=== PATIENT | male | born 1950 | race Caucasian/White ===

== ENCOUNTER → 2020-02-28 07:23 | Outpatient (CLI) | payer MEDICARE, OTHER, SELFPAY ==
--- NOTE | 2020-02-28 | DI.MRI.S_ITS ---
PROCEDURE: MR HEAD/BRAIN WO/W CON INDICATIONS: Disorientation, unspecified TECHNIQUE: Noncontrast axial T1 spin echo, axial T2 fast spin echo, sagittal and axial FLAIR, coronal T2 fast spin echo, axial gradient echo, axial diffusion and ADC through the brain. After the administration of contrast, axial and coronal T1 spin echo with fat saturation through the brain. COMPARISON: None. FINDINGS: Image quality: Excellent. CSF spaces: Basal cisterns are patent. No extra-axial fluid collections. Ventricles are normal in size and shape. Brain: No midline shift. No intracranial bleeds or masses. No abnormal intracranial enhancement. There is cerebral volume loss for age. There is periventricular white matter chronic small vessel ischemic change. The brainstem appears normal. Diffusion-weighted images demonstrate no acute ischemic insults. No chronic ischemic insults. There is a 7 millimeter in diameter lesion with rounded contours the demonstrates mixed T1 and T2 signal with susceptibility artifact in the left parietal lobe that is compatible with cavernoma.. Normal intravascular flow voids are present. Skull and face: Calvarial marrow is normal in signal. Orbits appear normal. Sinuses: Sinuses and mastoids appear clear. IMPRESSION: 1. No acute intracranial disease process. 2. No areas of acute or chronic infarction. 3. 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 4. No abnormal intracranial mass or mass effect. 5. No suspicious postcontrast enhancement. Dictated by: Terri Vides MD, PhD on 02/28/2020 at 11:54 Approved by: Terri Vides MD, PhD on 02/28/2020 at 11:58
== END ==
PROVIDERS: Family Provider Family Medicine; PCP Family Medicine; Referring Provider Family Medicine; Visit Provider Family Medicine
DX: D18.02 Hemangioma of intracranial structures (principal)
CPT/HCPCS: 70553

== ENCOUNTER → 2021-07-22 07:04 | Outpatient (CLI) | payer MEDICARE, OTHER, SELFPAY ==
--- NOTE | 2021-07-22 07:07 | DI.MRI.S_ITS ---
PROCEDURE: MR HEAD/BRAIN WO CON INDICATIONS: Disorientation, unspecified TECHNIQUE: Non-contrast axial T1 spin echo, axial T2 fast spin echo, sagittal and axial FLAIR, coronal T2 fast spin echo, axial gradient echo, axial diffusion and ADC through the brain. COMPARISON: None. FINDINGS: Image quality: Excellent. CSF spaces: Ventricles appear symmetric in size and shape. Basal cisterns are patent. No extra-axial fluid collections. Brain: No intracranial bleeds or mass effects. 6 millimeter lesion with mixed T2 signal and susceptibility artifact noted in the left parietal subcortical white matter which likely represents a small cavernous angioma. There is cerebral volume loss for age. Brainstem appears normal. Diffusion-weighted images show no acute ischemic insults. No chronic ischemic insults. Normal intravascular flow voids are present. Skull and face: Calvarial bone marrow is normal in signal. Orbits are normal. Sinuses: Mild mucosal thickening noted in the ethmoid air cells bilaterally, the left maxillary sinus, the bilateral sphenoid sinuses and the right frontal sinus. The mastoids are clear. IMPRESSION: 1. No acute intracranial disease process. 2. No areas of acute or chronic infarction. 3. No abnormal intracranial mass or mass effect. 4. Probable 6 millimeter left parietal lobe cavernous angioma. Dictated by: Terri Vides MD, PhD on 07/22/2021 at 11:16 Approved by: Terri Vides MD, PhD on 07/22/2021 at 11:19
== END ==
PROVIDERS: Family Provider Family Medicine; PCP Family Medicine; Referring Provider Family Medicine; Visit Provider Family Medicine
DX: R25.3 Fasciculation (principal); R41.0 Disorientation, unspecified
CPT/HCPCS: 70551

== ENCOUNTER 2025-05-05 09:28 | Inpatient (IN) | payer MEDICARE, OTHER, SELFPAY ==
[2025-05-05] VITALS (13 sets, daily range): BP systolic 129–181; BP diastolic 69–109; PULSE 74–91; RESP 16–32; TEMP 36–36.3; O2SAT 98–100; BMI 34.7
--- NOTE | 2025-05-05 09:36 | ED.WEAKNESS ---
HPI - Weakness General Chief complaint: Weakness Stated complaint: weakness History of Present Illness HPI Narrative: 75y M hx of parkinsons disease lives at [address] was getting up to have shower got weak and is unable to stand. Patient denies any headache,but has daily dizziness that is not new for him. He denies loss of consciousness, chest pain, shortness of breath, but did report having upper respiratory infection recently with cough that has since resolved. He denies any nausea, vomiting, diarrhea, back pain, urinary complaints, sore throat, chills, body aches, but did report subjective fever. Other than what is stated 14 point review of system is negative. Related Data Home Medications ?Medication ?Instructions ?Recorded ?Confirmed buspirone 15 mg tablet 15 mg PO BID 05/05/25 05/05/25 carbidopa 25 mg-levodopa 100 mg tab PO QID 05/05/25 tablet carbidopa ER 50 mg-levodopa 200 mg 1 tab PO 4XD 05/05/25 05/05/25 tablet,extended release entacapone 200 mg tablet 400 mg PO TID 05/05/25 05/05/25 escitalopram oxalate 10 mg tablet PO 05/05/25 hydroxyzine HCl 25 mg tablet 25 mg PO BID 05/05/25 05/05/25 Previous Rx's ?Medication ?Instructions ?Recorded Magic Mouthwash See Rx Instructions .Route 10/26/21 .COMPLEX #180 mL fluconazole 150 mg tablet 150 mg PO Q3D 2 doses #2 tabs 10/26/21 Allergies Allergy/AdvReac Type Severity Reaction Status Date / Time No Known Drug Allergies Allergy Verified 05/05/25 09:50 Review of Systems Review of Systems ROS Unobtainable: All systems reviewed & are unremarkable except as noted in HPI and below Patient History Social History Smoking Status: Never smoker Exam Narrative Exam Narrative: GENERAL: [75] year old patient appears stated age. Well-developed patient, in mild distress. HEAD: Atraumatic. Normocephalic. EYES: Pupils equal round and reactive. Extraocular motions intact. No scleral icterus. No injection or drainage. ENT: Nose without bleeding, purulent drainage. Throat without erythema, tonsillar hypertrophy or exudate. Airway patent. NECK: Trachea midline. Non tender CARDIOVASCULAR: Regular rate and rhythm without murmurs, gallops, or rubs. RESPIRATORY: Clear to auscultation. Breath sounds equal bilaterally. No wheezes, rales, or rhonchi. GASTROINTESTINAL: Abdomen soft, non-tender, nondistended. EXTREMITIES: No edema or joint tenderness. BACK: Nontender without deformity or crepitance. No flank tenderness. NEURO: AOx3. SKIN: No rash or erythema of visible areas Initial Vital Signs Initial Vital Signs: Vital Signs Temperature 97.4 F L 05/05/25 09:30 Pulse Rate 83 05/05/25 09:30 Respiratory Rate 24 05/05/25 09:30 Blood Pressure 129/69 05/05/25 09:30 Pulse Oximetry 98 05/05/25 09:30 Oxygen Delivery Method Room Air 05/05/25 09:30 Course Orders Ordered: ED Orders 05/05/25 09:29 Complete Blood Count AUTO DIFF Stat Comprehensive Metabolic Panel Stat Lactate (Lactic Acid) Stat Lipase Stat Magnesium Stat NT-proBNP (BNP-Adult 18+) Stat Troponin I Stat 05/05/25 09:36 XR chest 1V Stat EKG-12 Lead Stat 05/05/25 09:37 CT head/brain wo con Stat 05/05/25 09:39 Respiratory Panel (Film Array) Stat 05/05/25 10:24 Blood Culture Stat 05/05/25 11:12 Urinalysis and Microscopic Stat 05/05/25 11:35 Lactate (Lactic Acid) Stat Discontinued Medications Carbidopa/Levodopa (Carbidopa-Levodopa 25/100 Tablet) 1 each PO NOW ONE Stop: 05/05/25 11:08 Last Admin: 05/05/25 11:14 Dose: 1 each Documented By: ENDY Carbidopa/Levodopa (Carbidopa-Levodopa Er 50/200 Tablet) 1 each PO NOW ONE Stop: 05/05/25 11:08 Last Admin: 05/05/25 11:14 Dose: 1 each Documented By: ENDY Entacapone (Entacapone 200 Mg Tablet) 400 mg PO NOW ONE Stop: 05/05/25 11:09 Last Admin: 05/05/25 11:15 Dose: 400 mg Documented By: ENDY Lactated Ringer's (Lactated Ringers) 1,000 mls @ 1,000 mls/hr IV BOLUS ONE Stop: 05/05/25 10:36 Last Infusion: 05/05/25 10:52 Dose: Infused Documented By: Admin: 05/05/25 09:48 Dose: 1,000 mls/hr Documented By: TC Lactated Ringer's (Lactated Ringers) 500 mls @ 1,000 mls/hr IV BOLUS ONE Stop: 05/05/25 11:20 Lactated Ringer's (Lactated Ringers) 1,000 mls @ 1,000 mls/hr IV BOLUS ONE Stop: 05/05/25 11:50 Last Admin: 05/05/25 10:58 Dose: 1,000 mls/hr Documented By: TC Lactated Ringer's (Lactated Ringers) 500 mls @ 1,000 mls/hr IV BOLUS ONE Stop: 05/05/25 11:25 Last Admin: 05/05/25 10:58 Dose: Not Given Documented By: TC Vital Signs Vital signs: Vital Signs - 8 hr 05/05/25 09:30 05/05/25 09:53 05/05/25 10:00 Temperature 97.4 F L Pulse Rate 83 79 79 Respiratory Rate 24 28 H Blood Pressure 129/69 Pulse Oximetry 98 98 98 Oxygen Delivery Method Room Air MDM - Weakness Lab Data 05/05/25 09:29 05/05/25 09:29 Labs: Lab Results 05/05/25 05/05/25 Range/Units 09:29 09:39 WBC 6.7 (4.5-11.0) X10^3/uL RBC 4.46 L (4.5-5.9) X10^6/uL Hgb 14.2 (13.5-17.5) g/dL Hct 40.2 L (41-53) % MCV 90.2 (80-100) fL MCH 31.9 (26-34) PG MCHC 35.3 (30-36) % RDW 12.6 (11.6-14.8) % Plt Count 295 (150-400) X10^3/uL Neut % (Auto) 73.3 (50-75) % Lymph % (Auto) 20.5 L (25-40) % [place] % (Auto) 4.7 (3-14) % Eos % (Auto) 0.9 L (2-4) % Baso % (Auto) 0.6 (0-2) % Neut # (Auto) 4900 (1661-7961) /uL Lymph # (Auto) 1400 (3641-2392) /uL [place] # (Auto) 300 (0-900) /uL Eos # (Auto) 100 (0-450) /uL Baso # (Auto) 0 (0-100) /uL Sodium 137 (137-145) mmol/L Potassium 4.4 (3.4-5.1) mmol/L Chloride 107 (98-107) mmol/L Carbon Dioxide 21 L (22-32) mmol/L BUN 19 (9-20) mg/dL Creatinine 0.92 (0.66-1.25) mg/dL Estimated GFR > 60 (>60) mL/min BUN/Creatinine Ratio 20.7 (6-22) Glucose 229 H (70-99) mg/dL Lactate 4.4 H* (0.7-2.1) mmol/L Calcium 9.0 (8.4-10.2) mg/dL Magnesium 2.3 (1.6-2.3) mg/dL Total Bilirubin 0.7 (0.2-1.3) mg/dL AST 29 (17-59) IU/L ALT 12 (<50) IU/L Alkaline Phosphatase 46 (38-126) U/L Troponin I < 0.012 (0.01-0.034) ng/mL NT-Pro-B Natriuret Pep 313 (<450) pg/mL Total Protein 7.1 (6.3-8.2) g/dL Albumin 4.2 (3.5-5.0) g/dL Globulin 2.9 (1.7-4.1) g/dL Albumin/Globulin Ratio 1.4 (1.0-2.8) Lipase 76 (23-300) U/L Chlamy pneumoniae PCR Not detected (Not Detect) Adenovirus (PCR) Not detected (Not Detect) B. pertussis DNA (PCR) Not detected (Not Detect) B.parapertussis DNA PCR Not detected (Not Detecte) Coronavirus OC43 (PCR) Not detected (Not Detect) Coronavirus HKU1 (PCR) Not detected (Not Detect) Coronavirus 229E (PCR) Not detected (Not Detect) SARS-CoV-2 (PCR) Not detected (Not Detecte) Coronavirus NL63 (PCR) Not detected (Not Detect) Human Metapneumovir PCR Not detected (Not Detect) Influenza Type A (PCR) Not detected (Not Detect) Influenza Type B (PCR) Not detected (Not Detect) M. pneumoniae (PCR) Not detected (Not Detect) Parainfluenza 1 (PCR) Not detected (Not Detect) Parainfluenza 2 (PCR) Not detected (Not Detect) Parainfluenza 3 (PCR) Not detected (Not Detect) Parainfluenza 4 (PCR) Not detected (Not Detect) RSV (PCR) Not detected (Not Detect) Entero/Rhino (PCR) Not detected (Not Detect) Imaging Data Chest x-ray: Radiologist Impression: [address] [address] XRay Report Signed Patient: Julio Lisa MR#: [id number] : 1950 Acct:[id number] Age/Sex: 75 / M Date of Service: 05/05/25 Loc: ED Accession Number: [id number] Procedure: XR chest 1V Ordering Provider: Sam Gasca D.O. PROCEDURE: XR CHEST 1V INDICATIONS: weakness TECHNIQUE: One view of the chest was acquired. COMPARISON: [facility], , CHEST 2 VIEW, 07/05/2017, 10:11. FINDINGS: Surgical changes and devices: None. Lungs and pleura: An incomplete inspiratory result is noted, causing a crowded appearance to the lung markings. No focal infiltrates are seen. No pneumothorax or significant pleural effusions are seen. Mediastinum: Mediastinal contours appear normal. Heart size is normal. Bones and chest wall: No suspicious bony lesions. Age-appropriate bony degenerative changes are seen. Overlying soft tissues appear unremarkable. IMPRESSION: Low lung volumes, without an acute abnormality seen by plain film. CT scan - head: Radiologist Impression: [address] [place] [id number] Scan Report Signed Patient: Julio Lisa MR#: [id number] : 1950 Acct:[id number] Age/Sex: 75 / M Date of Service: 05/05/25 Loc: ED Accession Number: [id number] Procedure: CT head/brain wo con Ordering Provider: Sam Gasca D.O. PROCEDURE: CT HEAD/BRAIN WO CON INDICATIONS: weakness dizzy TECHNIQUE: Noncontrast 4.5 mm thick angled axial sections acquired from the foramen magnum to the vertex, with coronal and sagittal reformats. For radiation dose reduction, the following was used: automated exposure control, adjustment of mA and/or kV according to patient size. COMPARISON: None. FINDINGS: Image quality: Diagnostic. CSF spaces: Basal cisterns are patent. No extra-axial fluid collections. The ventricles are symmetric in size and shape. Brain: No intracranial bleeds or mass effect. Stable appearance of a 6 mm left parietal centrum semiovale cavernoma. No adjacent cerebral edema. There is cerebral volume loss, with resultant ventricular and sulcal prominence. There are periventricular and deep white matter chronic small vessel ischemic changes. There is intracranial internal carotid artery atherosclerosis. Skull and face: Calvarium and visualized facial bones appear intact, without suspicious lesions. Sinuses: Visualized sinuses and mastoids are clear. IMPRESSION: No acute intracranial pathology. Dictated by: Gregg Lundberg M.D. on 05/05/2025 at 10:01 Approved by: Gregg Lundberg M.D. on 05/05/2025 at 10:04 [facility] Narrative Medical decision making narrative: All lab work, vital signs, nurse triage note, medication list, previous ER visits, and all imaging studies reviewed. Chest x-ray showed no acute process and head CT showed no acute process. Patient received 2 L of lactated ringer 1 L bolus. WBC 6.7 1114.2 platelets 295 electrolytes were normal. Lactic acid 4.4 and on repeat came down to 2.4. Differential diagnosis sepsis COVID flu RSV pneumonia UTI. Case discussed with Dr. Kimball who has graciously accepted the patient for inpatient admission Discharge Plan Departure Patient Disposition: Admitted as Observation Clinical Impression: Weak Admit Date/Time: 05/05/25 12:41 Admit Provider: Sam Kimball
[2025-05-05] MEDS: LACTATED RINGERS 1,000 ML 1000 ML IV ×2 (09:48→10:58)
[2025-05-05 09:55] LABS: Add Manual Diff / Slide Review NO; Hematocrit 40.2 % (41-53); Hemoglobin 14.2 g/dL (13.5-17.5); Lymphocytes Absolute Auto 1400 /uL (1100-4500); Mean Corpuscular HGB Conc 35.3 % (30-36); Mean Corpuscular Hemoglobin 31.9 PG (26-34); Mean Corpuscular Volume 90.2 fL (80-100); Platelet Count 295 X10^3/uL (150-400)
[2025-05-05 09:59] LABS: Alanine Aminotransferase 12 IU/L (<50); Albumin 4.2 g/dL (3.5-5.0); Albumin Globulin Ratio 1.4 (1.0-2.8); Alkaline Phosphatase 46 U/L (38-126); Blood Urea Nitrogen 19 mg/dL (9-20); Calcium 9.0 mg/dL (8.4-10.2); Carbon Dioxide 21 mmol/L (22-32); Chloride 107 mmol/L (98-107); Estimated Glomerular Filt Rate > 60 mL/min (>60); Globulin 2.9 g/dL (1.7-4.1); Glucose 229 mg/dL (70-99); HEMOLYSIS 17 (0-50); Lipase 76 U/L (23-300); Magnesium 2.3 mg/dL (1.6-2.3); Potassium 4.4 mmol/L (3.4-5.1); Sodium 137 mmol/L (137-145); Total Protein 7.1 g/dL (6.3-8.2)
[2025-05-05 10:08] LABS: Lactate (Lactic Acid) 4.4 mmol/L (0.7-2.1)
[2025-05-05 10:11] LABS: NT-proBNP (BNP-Adult 18+) 313 pg/mL (<450); Troponin I < 0.012 ng/mL (0.01-0.034)
[2025-05-05 10:54] LABS: Coronavirus NL 63 Not Detected (Not Detect); SARS- CoV-2 Not Detected (Not Detecte)
[2025-05-05] MEDS: CARBIDOPA-LEVODOPA ER 50/200 TABLET 1 EACH PO ×3 (11:14→20:36)
[2025-05-05] MEDS: CARBIDOPA-LEVODOPA 25/100 TABLET 1 EACH PO (11:14)
[2025-05-05] MEDS: ENTACAPONE 200 MG TABLET 400 MG PO ×2 (11:15→20:36)
[2025-05-05 11:25] LABS: Reflexed Lactate in 2 Hours Y
[2025-05-05 12:16] LABS: Appearance Urine UA CLEAR; Bilirubin Urine UA NEGATIVE (NEGATIVE); Color Urine UA YELLOW; Glucose Urine UA NEGATIVE (Negative); Ketones Urine UA NEGATIVE (NEGATIVE); Leukocyte Esterase Urine UA NEGATIVE (NEGATIVE); Nitrite Urine UA NEGATIVE (Negative); Occult Blood Urine UA NEGATIVE (Negative); Protein Urine UA NEGATIVE (Negative); Specific Gravity Urine UA 1.010 (1.000-1.035); Urobilinogen Urine UA 0.2 E.U./dL (0.2); pH Urine UA 7.5 (4.5-8.0)
[2025-05-05 12:31] LABS: Lactate 2HR (Lactic Acid Rflx) 2.4 mmol/L (0.7-2.1)
[2025-05-05 12:59] LABS: Troponin I < 0.012 ng/mL (0.01-0.034)
--- NOTE | 2025-05-05 13:03 | DI.RAD.S_ITS ---
PROCEDURE: XR KUB INDICATIONS: abd distension TECHNIQUE: One view of the abdomen acquired. COMPARISON: None. FINDINGS: Surgical changes and devices: None. Bowel: Multiple if filled, nondilated, stacked loops of small bowel throughout the abdomen in a nonspecific pattern. Soft tissues: No suspicious abdominal calcifications. Visualized solid organ contours appear normal in size. Bones: No suspicious bony lesions. IMPRESSION: Nonspecific air-filled mildly prominent, nondilated loops of bowel within the central abdomen. Recommend correlation with CT abdomen pelvis with IV contrast. Dictated by: Gregg Lundberg M.D. on 05/05/2025 at 14:06 Approved by: Gregg Lundberg M.D. on 05/05/2025 at 14:07
--- NOTE | 2025-05-05 13:32 | PM.HP.IH.1 ---
History of Present Illness History of Present Illness Date Patient Seen: 05/05/25 Time Patient Seen: 13:32 Chief complaint: weakness Narrative: 75-year-old male, normally sees Dr. Gutiérrez for primary care, resides at [facility] presented with weakness. He said he was unable to stand and shower. Did recently have some sort of upper respiratory infection that seems to have cleared, including cough which he says is now gone Denies any GI symptoms. No muscle aches. No chest pain or palpitations. ER evaluation unremarkable including normal white blood cell count normal chemistries normal chest x-ray and head CT. Urinalysis was also normal. He had a negative respiratory panel for typical respiratory viruses In the ER however he did have an elevated lactate level which improved with some IV fluids and time. In addition patient upon bladder scan was found to have over a 1000 cc in his bladder. Per patient and family patient been struggling to empty his bladder for quite some time. Is complaining of some abdominal/suprapubic discomfort likely from the bladder. Plain film KUB done in ER unremarkable by my interpretation He is admitted for observation Medical problems include Parkinson's disease with orthostatic hypotension on medications as listed. Some degree of anxiety and depression. Patient's spouse reports that she believes the buspirone that he takes his causing increased anxiety rather than helping. Patient on nothing for his prostate or bladder. By report has some sort of ventral hernia or maybe diastasis recti PFSH Medical History BPH NOS w ur obs/LUTS Peripheral neuropathy Ventral hernia Orthostatic hypotension Generalized anxiety disorder Depression Parkinsons disease Surgical History Status post repair of ventral hernia Social History Smoking Status: Never smoker Meds Home Medications and Allergies Home Medications ?Medication ?Instructions ?Recorded ?Confirmed ?Type Magic Mouthwash See Rx Instructions .Route 10/26/21 Rx .COMPLEX #180 mL fluconazole 150 mg tablet 150 mg PO Q3D 2 doses #2 tabs 10/26/21 05/05/25 Rx buspirone 15 mg tablet 15 mg PO BID 05/05/25 05/05/25 History carbidopa 25 mg-levodopa 100 mg tab PO QID 05/05/25 History tablet carbidopa ER 50 mg-levodopa 200 mg 1 tab PO 4XD 05/05/25 05/05/25 History tablet,extended release entacapone 200 mg tablet 400 mg PO TID 05/05/25 05/05/25 History escitalopram oxalate 10 mg tablet 10 mg PO BID 05/05/25 05/05/25 History fludrocortisone 0.1 mg tablet 0.2 mg PO QAM 05/05/25 05/05/25 History hydroxyzine HCl 25 mg tablet 25 mg PO BID 05/05/25 05/05/25 History midodrine 2.5 mg tablet 2.5 mg PO DAILY 05/05/25 05/05/25 History Allergies Allergy/AdvReac Type Severity Reaction Status Date / Time No Known Drug Allergies Allergy Verified 05/05/25 09:50 Review of Systems Review of Systems ROS: Yes All systems reviewed with the patient and are negative except as otherwise documented Exam Vital Signs (past 8 hours): - 05/05/25 09:30 05/05/25 09:53 05/05/25 10:00 Temperature 97.4 F L Pulse Rate 83 79 79 Respiratory Rate 24 28 H Blood Pressure 129/69 Pulse Oximetry 98 98 98 Oxygen Delivery Method Room Air 05/05/25 10:11 05/05/25 10:11 05/05/25 10:30 Temperature Pulse Rate 77 75 Respiratory Rate 28 H 23 Blood Pressure 145/77 H Pulse Oximetry 99 99 Oxygen Delivery Method 05/05/25 10:30 05/05/25 11:00 05/05/25 11:00 Temperature Pulse Rate 79 Respiratory Rate 25 H Blood Pressure 156/93 H 176/109 H Pulse Oximetry 98 Oxygen Delivery Method 05/05/25 11:30 05/05/25 11:30 05/05/25 12:00 Temperature Pulse Rate 87 91 H Respiratory Rate 27 H 32 H Blood Pressure 181/84 H Pulse Oximetry 99 99 Oxygen Delivery Method 05/05/25 12:30 05/05/25 12:31 05/05/25 12:31 Temperature Pulse Rate 91 H 85 Respiratory Rate 26 H 22 Blood Pressure 149/83 H Pulse Oximetry 100 99 Oxygen Delivery Method 05/05/25 13:00 05/05/25 13:00 Temperature Pulse Rate 75 Respiratory Rate 21 Blood Pressure 148/81 H Pulse Oximetry 99 Oxygen Delivery Method Oxygen Delivery Method Room Air Narrative Exam Narrative: Elderly male in no obvious distress lying in hospital bed HEENT-unremarkable Lungs-clear anteriorly posteriorly no wheezes no crackles with good breath sounds Heart-regular rate and rhythm no murmur somewhat distant heart tones Abdomen-positive bowel tones soft nontender maybe some generalized discomfort in the low abdomen no palpable masses Extremities-no cyanosis clubbing or edema Neuro-alert and oriented x3 moves all 4 extremities Objective Labs 05/05/25 09:29 05/05/25 09:29 Labs: Laboratory Results - last 24 hr 05/05/25 05/05/25 05/05/25 09:29 09:39 11:12 WBC 6.7 RBC 4.46 L Hgb 14.2 Hct 40.2 L MCV 90.2 MCH 31.9 MCHC 35.3 RDW 12.6 Plt Count 295 Neut % (Auto) 73.3 Lymph % (Auto) 20.5 L [place] % (Auto) 4.7 Eos % (Auto) 0.9 L Baso % (Auto) 0.6 Neut # (Auto) 4900 Lymph # (Auto) 1400 [place] # (Auto) 300 Eos # (Auto) 100 Baso # (Auto) 0 Sodium 137 Potassium 4.4 Chloride 107 Carbon Dioxide 21 L BUN 19 Creatinine 0.92 Estimated GFR > 60 BUN/Creatinine Ratio 20.7 Glucose 229 H Lactate 4.4 H* Calcium 9.0 Magnesium 2.3 Total Bilirubin 0.7 AST 29 ALT 12 Alkaline Phosphatase 46 Troponin I < 0.012 NT-Pro-B Natriuret Pep 313 Total Protein 7.1 Albumin 4.2 Globulin 2.9 Albumin/Globulin Ratio 1.4 Lipase 76 Urine Color Yellow Urine Appearance Clear Urine pH 7.5 Ur Specific [place] 1.010 Urine Protein Negative Urine Glucose (UA) Negative Urine Ketones Negative Urine Occult Blood Negative Urine Nitrate Negative Urine Bilirubin Negative Urine Urobilinogen 0.2 Ur Leukocyte Esterase Negative Urine RBC None seen Urine WBC None seen Ur Squamous Epith Cells None seen Urine Bacteria None seen Granular Casts 0-1/lpf Urine Mucus 1+ H Vol Urine Centrifuged 10ml (spun) Chlamy pneumoniae PCR Not detected Adenovirus (PCR) Not detected B. pertussis DNA (PCR) Not detected B.parapertussis DNA PCR Not detected Coronavirus OC43 (PCR) Not detected Coronavirus HKU1 (PCR) Not detected Coronavirus 229E (PCR) Not detected SARS-CoV-2 (PCR) Not detected Coronavirus NL63 (PCR) Not detected Human Metapneumovir PCR Not detected Influenza Type A (PCR) Not detected Influenza Type B (PCR) Not detected M. pneumoniae (PCR) Not detected Parainfluenza 1 (PCR) Not detected Parainfluenza 2 (PCR) Not detected Parainfluenza 3 (PCR) Not detected Parainfluenza 4 (PCR) Not detected RSV (PCR) Not detected Entero/Rhino (PCR) Not detected 05/05/25 11:46 WBC RBC Hgb Hct MCV MCH MCHC RDW Plt Count Neut % (Auto) Lymph % (Auto) [place] % (Auto) Eos % (Auto) Baso % (Auto) Neut # (Auto) Lymph # (Auto) [place] # (Auto) Eos # (Auto) Baso # (Auto) Sodium Potassium Chloride Carbon Dioxide BUN Creatinine Estimated GFR BUN/Creatinine Ratio Glucose Lactate 2.4 H Calcium Magnesium Total Bilirubin AST ALT Alkaline Phosphatase Troponin I < 0.012 NT-Pro-B Natriuret Pep Total Protein Albumin Globulin Albumin/Globulin Ratio Lipase Urine Color Urine Appearance Urine pH Ur Specific [place] Urine Protein Urine Glucose (UA) Urine Ketones Urine Occult Blood Urine Nitrate Urine Bilirubin Urine Urobilinogen Ur Leukocyte Esterase Urine RBC Urine WBC Ur Squamous Epith Cells Urine Bacteria Granular Casts Urine Mucus Vol Urine Centrifuged Chlamy pneumoniae PCR Adenovirus (PCR) B. pertussis DNA (PCR) B.parapertussis DNA PCR Coronavirus OC43 (PCR) Coronavirus HKU1 (PCR) Coronavirus 229E (PCR) SARS-CoV-2 (PCR) Coronavirus NL63 (PCR) Human Metapneumovir PCR Influenza Type A (PCR) Influenza Type B (PCR) M. pneumoniae (PCR) Parainfluenza 1 (PCR) Parainfluenza 2 (PCR) Parainfluenza 3 (PCR) Parainfluenza 4 (PCR) RSV (PCR) Entero/Rhino (PCR) Assessment & Plan Assessment & Plan narrative: 1. Weakness-patient with elevated lactate would suggest an infectious etiology however none has been found given his initial workup. We will continue with some IV fluids for now. No indication for antibiotic therapy at this point. Perhaps he is still recovering from his recent respiratory infection. All serologies for viral respiratory illness have been negative. No evidence of a UTI or pneumonia either objectively or subjectively. Will continue to monitor and await blood culture results as well. Recheck CBC and chemistries tomorrow morning 2. Parkinson's disease-continue patient's usual carbidopa levodopa and encaptone. Will have him seen by Physical therapy as well both for his weakness and his Parkinson's disease 3. Urinary retention secondary to BPH-well initiate tamsulosin therapy but given the volume that is seems to be present in his bladder based on bladder scan I think he would benefit from an indwelling catheter to allow decompression of bladder for more extended time and perhaps then regained some function. Does not appear to be a direct correlation with his overall weakness but perhaps it is a contributing factor 4. Depression/anxiety-continue patient's escitalopram and hydroxyzine. I am going to hold the buspirone given the report that it might be making his anxiety actually worse. 5. VTE prophylaxis-Lovenox appropriate and has been ordered 6. Code status-patient and family are in agreement he would not want to be resuscitated in the event of a sudden cardiac or respiratory arrest and this order has been placed 7. Hyperglycemia-patient with no known history of diabetes. A bit hyperglycemic to start with. Will plan to check an A1c in the morning and depending on his clinical course may benefit from some fingerstick glucose which I am choosing not to order at this time. We will see what his glucoses with the morning labs as well as the A1c. Time-Based Coding :: [TOTAL MINUTES] spent with patient and on the chart (including review of chart, obtaining history, exam, reviewing outside data, placing orders, documenting exam and treatment plan, and counseling patient) on [DATE]. [employer] Document charge(s): Yes Charge Codes Initial inpatient/observation care: [id number]
[2025-05-05] MEDS: LIDOCAINE 2% (GLYDO) 6 ML GEL TOP (14:31)
[2025-05-05] MEDS: SODIUM CHLORIDE 0.9% 1,000 ML 80 ML IV (15:43)
[2025-05-05] MEDS: CARBIDOPA-LEVODOPA 25/100 TABLET 2 EACH PO ×2 (15:44→20:36)
--- NOTE | 2025-05-05 15:47 | PT-IP ANOTE ---
Attempted to see pt, agitated with confusion when PT entered the room. RN states pt has dementia per and is worse in PM. Additionally pt is just receiving medication for Parkinson's, will perform evaluation tomorrow AM.
[2025-05-05] MEDS: TAMSULOSIN 0.4 MG CAPSULE PO (20:37)
[2025-05-05] MEDS: ACETAMINOPHEN 325 MG TABLET 650 MG PO (20:40)
[2025-05-06] MEDS: CARBIDOPA-LEVODOPA ER 50/200 TABLET 1 EACH PO ×4 (04:56→21:25)
[2025-05-06] MEDS: CARBIDOPA-LEVODOPA 25/100 TABLET 2 EACH PO ×3 (04:56→21:24)
[2025-05-06] MEDS: ENTACAPONE 200 MG TABLET 400 MG PO ×3 (04:56→21:25)
[2025-05-06] MEDS: SODIUM CHLORIDE 0.9% 1,000 ML 80 ML IV (05:53)
[2025-05-06 05:57] LABS: Add Manual Diff / Slide Review NO; Hematocrit 38.6 % (41-53); Hemoglobin 13.4 g/dL (13.5-17.5); Lymphocytes Absolute Auto 1800 /uL (1100-4500); Mean Corpuscular HGB Conc 34.7 % (30-36); Mean Corpuscular Hemoglobin 31.3 PG (26-34); Mean Corpuscular Volume 90.0 fL (80-100); Platelet Count 246 X10^3/uL (150-400)
[2025-05-06 06:13] LABS: Alanine Aminotransferase 10 IU/L (<50); Albumin 3.8 g/dL (3.5-5.0); Albumin Globulin Ratio 1.3 (1.0-2.8); Alkaline Phosphatase 43 U/L (38-126); Blood Urea Nitrogen 13 mg/dL (9-20); Calcium 8.7 mg/dL (8.4-10.2); Carbon Dioxide 25 mmol/L (22-32); Chloride 110 mmol/L (98-107); Estimated Glomerular Filt Rate > 60 mL/min (>60); Globulin 2.9 g/dL (1.7-4.1); Glucose 100 mg/dL (70-99); HEMOLYSIS < 15 (0-50); Potassium 4.0 mmol/L (3.4-5.1); Sodium 141 mmol/L (137-145); Total Protein 6.7 g/dL (6.3-8.2)
[2025-05-06 06:14] LABS: Hemoglobin A1C% w Est Avg Glu 6.0 % (4.0-6.0)
[2025-05-06 08:00] VITALS: BP 127/76; PULSE 74; RESP 20; TEMP 36.2; O2SAT 96
--- NOTE | 2025-05-06 08:10 | PM.PN.1 ---
Subjective Subjective Date Patient Seen: 05/06/25 Time Patient Seen: 13:35 Interval history: 75-year-old patient under primary care of Dr. Cameron admitted by Dr. Kimball yesterday. Patient with a history of Parkinson's and autonomic dysfunction with hypotension who presented with sudden onset of lower extremity weakness and inability to use lower extremities at all. Workup in the ER was negative and patient was admitted to the hospital for further evaluation. Initial lactate elevated normal after IV fluids and patient found to have urinary retention with a L of fluid obtained from his bladder and indwelling Cody catheter placed. Blood cultures thus far negative no elevated white blood cell count on patient is afebrile without any signs or symptoms of infection. Patient continues to have difficulty with mobility in his not at his baseline. PT has worked with him and feels that skilled care facility is recommended. Lengthy discussion with patient and his and daughter and son-in-law. feels that his anxiety is gradually worsening in his certainly has not been helped with the BuSpar and she feels that he has either possible anxiety attack after that or worsened Parkinson's symptoms. They see Neurology at [facility]. Recently the plan was to start him on a different medication for his Parkinson's but apparently this was not available at the pharmacy so they are waiting for that. He was diagnosed with Parkinson's in 2022 but symptoms predated it Patient did have an MRI in 2019 and 2021 which showed a cavernous hemangioma 7 mm on the 1st 1 6 mm on the 2nd but no other abnormalities Patient has had abdominal pain in the right lower quadrant that has been intermittent and progressive Patient is tolerating food and ate his whole lunch. He was drinking fluids. Catheters in place and working No change in past medical history medications allergies or health related behavior 12 point review of systems is negative for any headaches or chest pain or shortness a breath Negative for any fever rashes Negative for falls other than recent presenting complaint Patient lives in assisted care with his Exam Vital Signs (past 8 hours): Oxygen Delivery Method Room Air Oxygen Flow Rate 0 Narrative Exam Narrative: Patient is alert and cooperative sitting in the chair. History is obtained mostly from and daughter and son-in-law Afebrile vital signs are stable Neck: Supple without adenopathy Chest clear to auscultation without wheezes rhonchi or crackles Cor: Regular rate and rhythm without a murmur Abdomen: Positive bowel sounds, soft, nontender, nondistended, no obvious hepatosplenomegaly. Well-healed incision at the umbilicus from previous hernia repair Extremities no edema pulses intact Neurologic exam patient has difficulty really participating is he has trouble getting words out. Patient has normal strength grossly upper extremities and in the left lower extremity but patient is unable to dorsiflex on the right. Objective Labs 05/06/25 04:50 05/06/25 04:50 Labs: Laboratory Results - last 24 hr 05/05/25 05/05/25 05/05/25 09:29 09:39 11:12 WBC 6.7 RBC 4.46 L Hgb 14.2 Hct 40.2 L MCV 90.2 MCH 31.9 MCHC 35.3 RDW 12.6 Plt Count 295 Neut % (Auto) 73.3 Lymph % (Auto) 20.5 L [place] % (Auto) 4.7 Eos % (Auto) 0.9 L Baso % (Auto) 0.6 Neut # (Auto) 4900 Lymph # (Auto) 1400 [place] # (Auto) 300 Eos # (Auto) 100 Baso # (Auto) 0 Sodium 137 Potassium 4.4 Chloride 107 Carbon Dioxide 21 L BUN 19 Creatinine 0.92 Estimated GFR > 60 BUN/Creatinine Ratio 20.7 Glucose 229 H Hemoglobin A1c Lactate 4.4 H* Calcium 9.0 Magnesium 2.3 Total Bilirubin 0.7 AST 29 ALT 12 Alkaline Phosphatase 46 Troponin I < 0.012 NT-Pro-B Natriuret Pep 313 Total Protein 7.1 Albumin 4.2 Globulin 2.9 Albumin/Globulin Ratio 1.4 Lipase 76 Urine Color Yellow Urine Appearance Clear Urine pH 7.5 Ur Specific [place] 1.010 Urine Protein Negative Urine Glucose (UA) Negative Urine Ketones Negative Urine Occult Blood Negative Urine Nitrate Negative Urine Bilirubin Negative Urine Urobilinogen 0.2 Ur Leukocyte Esterase Negative Urine RBC None seen Urine WBC None seen Ur Squamous Epith Cells None seen Urine Bacteria None seen Granular Casts 0-1/lpf Urine Mucus 1+ H Vol Urine Centrifuged 10ml (spun) Chlamy pneumoniae PCR Not detected Adenovirus (PCR) Not detected B. pertussis DNA (PCR) Not detected B.parapertussis DNA PCR Not detected Coronavirus OC43 (PCR) Not detected Coronavirus HKU1 (PCR) Not detected Coronavirus 229E (PCR) Not detected SARS-CoV-2 (PCR) Not detected Coronavirus NL63 (PCR) Not detected Human Metapneumovir PCR Not detected Influenza Type A (PCR) Not detected Influenza Type B (PCR) Not detected M. pneumoniae (PCR) Not detected Parainfluenza 1 (PCR) Not detected Parainfluenza 2 (PCR) Not detected Parainfluenza 3 (PCR) Not detected Parainfluenza 4 (PCR) Not detected RSV (PCR) Not detected Entero/Rhino (PCR) Not detected 05/05/25 05/06/25 11:46 04:50 WBC 7.1 RBC 4.29 L Hgb 13.4 L Hct 38.6 L MCV 90.0 MCH 31.3 MCHC 34.7 RDW 12.7 Plt Count 246 Neut % (Auto) 63.2 Lymph % (Auto) 26.1 [place] % (Auto) 8.8 Eos % (Auto) 1.1 L Baso % (Auto) 0.8 Neut # (Auto) 4500 Lymph # (Auto) 1800 [place] # (Auto) 600 Eos # (Auto) 100 Baso # (Auto) 100 Sodium 141 Potassium 4.0 Chloride 110 H Carbon Dioxide 25 BUN 13 Creatinine 0.76 Estimated GFR > 60 BUN/Creatinine Ratio 17.1 Glucose 100 H D Hemoglobin A1c 6.0 Lactate 2.4 H Calcium 8.7 Magnesium Total Bilirubin 0.9 AST 24 ALT 10 Alkaline Phosphatase 43 Troponin I < 0.012 NT-Pro-B Natriuret Pep Total Protein 6.7 Albumin 3.8 Globulin 2.9 Albumin/Globulin Ratio 1.3 Lipase Urine Color Urine Appearance Urine pH Ur Specific [place] Urine Protein Urine Glucose (UA) Urine Ketones Urine Occult Blood Urine Nitrate Urine Bilirubin Urine Urobilinogen Ur Leukocyte Esterase Urine RBC Urine WBC Ur Squamous Epith Cells Urine Bacteria Granular Casts Urine Mucus Vol Urine Centrifuged Chlamy pneumoniae PCR Adenovirus (PCR) B. pertussis DNA (PCR) B.parapertussis DNA PCR Coronavirus OC43 (PCR) Coronavirus HKU1 (PCR) Coronavirus 229E (PCR) SARS-CoV-2 (PCR) Coronavirus NL63 (PCR) Human Metapneumovir PCR Influenza Type A (PCR) Influenza Type B (PCR) M. pneumoniae (PCR) Parainfluenza 1 (PCR) Parainfluenza 2 (PCR) Parainfluenza 3 (PCR) Parainfluenza 4 (PCR) RSV (PCR) Entero/Rhino (PCR) [facility] Medical History BPH NOS w ur obs/LUTS Peripheral neuropathy Ventral hernia Orthostatic hypotension Generalized anxiety disorder Depression Parkinsons disease Surgical History Status post repair of ventral hernia Social History household members: spouse Smoking Status: Never smoker alcohol intake: never Assessment & Plan Assessment & Plan narrative: 1. Weakness- suspect parkinson's, deconditioning, dehydration. No evidence of infection. Viral panels negative, AF, normal wbc and normal lactate after fluid hydration. Will await blood cultures. Abx not indicated at this time 2. Parkinson's disease-continue patient's usual carbidopa levodopa and encaptone. Will have him seen by Physical therapy as well both for his weakness and his Parkinson's disease 3. Urinary retention secondary to BPH-well initiate tamsulosin therapy but given the volume that is seems to be present in his bladder based on bladder scan I think he would benefit from an indwelling catheter to allow decompression of bladder for more extended time and perhaps then regained some function. Does not appear to be a direct correlation with his overall weakness but perhaps it is a contributing factor. Will continue with cody catheter. Will cautiously give flomax due to orthostasis associated with parkinsons. We will stop IV fluids and reassess tomorrow 4. Depression/anxiety-continue patient's escitalopram and hydroxyzine. I am going to hold the buspirone given the report that it might be making his anxiety actually worse. Could consider Seroquel although I worry this may worsen his Parkinson's symptoms and would want to clear this with Neurology 1st 5. VTE prophylaxis-Lovenox appropriate and has been ordered 6. Code status-patient and family are in agreement he would not want to be resuscitated in the event of a sudden cardiac or respiratory arrest and this order has been placed 7. Hyperglycemia-patient with no known history of diabetes. A bit hyperglycemic to start with. Will plan to check an A1c in the morning and depending on his clinical course may benefit from some fingerstick glucose which I am choosing not to order at this time. We will see what his glucoses with the morning labs as well as the A1c. 8. Anxiety. Will continue on lexapro and wean off buspar as per oupt 9. Neurologic changes: Could be related to Parkinson's and autonomic dysfunction with hypotension and dehydration however we will do a MRI MRA stroke protocol to rule out stroke or other etiologies 10. Abdominal pain with abnormal findings on x-ray. We will do CT scan of abdomen and pelvis with contrast 11. Cognitive changes Plan: Will need outpatient neuropsych eval. Will do MRI MRA stroke protocol to rule out coexisting abnormality 60 minutes was spent with patient reviewing his clinic chart and is hospital chart and talking with physicians meeting with the patient in his family and discussing with nursing and formulating a plan and documentation Time-Based Coding :: Time-Based Coding :: [TOTAL MINUTES] spent with patient and on the chart (including review of chart, obtaining history, exam, reviewing outside data, placing orders, documenting exam and treatment plan, and counseling patient) on [DATE].
[2025-05-06] MEDS: ENOXAPARIN 40 MG/0.4 ML SYRINGE SUBCUT (08:14)
[2025-05-06] MEDS: ESCITALOPRAM 10 MG TABLET PO ×2 (08:14→21:26)
[2025-05-06] MEDS: TAMSULOSIN 0.4 MG CAPSULE PO ×2 (08:14→21:25)
--- NOTE | 2025-05-06 08:35 | PT.IIE ---
Surgical History (Last Reviewed 05/05/25 @ 14:11 by Sam Kimball MD) Status post repair of ventral hernia Medical History (Last Reviewed 05/05/25 @ 14:11 by Sam Kimball MD) BPH NOS w ur obs/LUTS Depression Generalized anxiety disorder Orthostatic hypotension Parkinsons disease Peripheral neuropathy Ventral hernia Physical Therapy Inpatient Evaluation/Re-Eval M1 PT IP Prior Functional Status Start: 05/06/25 10:33 Freq: Status: Active Protocol: Document 05/06/25 10:34 NW (Rec: 05/06/25 10:48 NW [id number]) Medical Review Prior Functional Status Mobility and Gait Ousmane with u-step walker to and from the [facility]. Activities of Daily Requires assistance with bathing and dressing. Living and IADL's Social History Household Members spouse Living Arrangements House Home Environment High Toilet,Walk in Shower Home Equipment Four Wheel Walker,Grab Bars Near Toilet,Grab Bars In Shower Employment Status Retired Additional Social u-step walker History Comment M2 PT-IP Current Condition Start: 05/06/25 10:33 Freq: Status: Active Protocol: Document 05/06/25 10:34 NW (Rec: 05/06/25 10:48 NW [id number]) Physical Therapy Current Condition Current Condition Evaluation Date 05/06/25 Treatment Diagnosis Weakness, Parkinson's Onset Date 05/05/25 M3 PT-IP Subjective Start: 05/06/25 10:33 Freq: Status: Active Protocol: Document 05/06/25 10:34 NW (Rec: 05/06/25 10:48 NW [id number]) Subjective Physical Therapy Visit Type Type Initial Evaluation Visit Start Time 08:35 Visit Stop Time 09:15 Number of STAFF RN Visits 0 Physical Therapy Visit Comments Patient Comments Pt is found resting supine in bed and is agreeable to PT evaluation. Patient Goals To return to prior living arrangement. M4 PT-IP Mobility and Gait Start: 05/06/25 10:33 Freq: Status: Active Protocol: Document 05/06/25 10:34 NW (Rec: 05/06/25 10:48 NW [id number]) PT-Bed Mobility Assessment Rolling Type of Rolling Roll to Left Level of Assist Contact Guard Assistance Supine to Sit Supine to Sit Minimal Assistance,Head of Bed Elevated,Bedrails Scooting Scooting to Edge of Minimal Assistance Bed PT-Transfer Assessment Sit to and From Stand Sit to and from Minimal Assistance,1 Person Assistance,Use of Upper Stand Extremities Equipment Transfer Assistive Gait Belt,Front Wheeled Walker Device Transfers Transfer Destination Chair Transfer Technique Stand Step Pivot Transfer Ability Level of Assist Contact Guard Assistance,1 Person Assistance,Use of Upper Extremities Comments Mobility Comments Pt requires Lisseth with STS due to poor power production, once standing is able to maintain balance and perform transfer with CGA with good AD management. Gait Assessment Gait Gait Assistance Contact Guard Assist Required: Distance (Feet) 5 Assistive Devices Assistive Device Gait Belt,Front Wheeled Walker Gait Deviations General Gait Pattern Decreased Stride Length,Decreased Feet Clearance,Flexed Trunk,Narrow Based Gait Factors Limiting Gait Function Factors Limiting Abnormal Tonal Influences,Decreased Activity Tolerance, Gait Function Decreased Strength,Poor Balance Comments Gait Comments Pt is inconsistent with heel to toe progression with occasional shuffling for short distance ambulation. Pt noted fatigue after short distances ambulation. Good AD management. PT-Balance Assessment Sitting Balance and Reactions Static Sitting Normal Balance Ability Dynamic Sitting Good Balance Ability Standing Balance and Reactions Static Standing Fair Balance Ability Dynamic Standing Poor Balance Ability Device Used FWW Functional Assessments Other Functional Tests Not able to perform Performed M5 PT-IP Objective Assessments Start: 05/06/25 10:33 Freq: Status: Active Protocol: Document 05/06/25 10:34 NW (Rec: 05/06/25 10:48 NW [id number]) Orientation Orientation/Cognition Level of Alertness Alert Orientation Name,Month,Place,Situation Safety Awareness Decreased Safety Awareness Comments Takes increased time with responses and becomes emotional with certain questions regarding mobility. Gross Range of Motion Upper Extremity ROM Assessment Within Functional Limits Lower Extremity ROM Assessment Within Functional Limits Strength Upper Extremity Strength Assessment Within Functional Limits Lower Extremity Strength Assessment Within Functional Limits Comments Strength Comments Isolated strength within functional limits. Coordination Assessment Gross Coordination Gross Coordination Impaired Assessment Finger to Nose Test Moderate Impairment Pronation/Supination Moderate Impairment Test Heel on Sotomayor Test Moderate Impairment Sensation Assessment Sensation Gross Sensation Right LE Impaired,Left LE Impaired Light Touch Impaired Sensation Pins & Almo Description Comments Sensation Comments Peripheral neuropathy Muscle Tone Muscle Tone WNL No Comments Muscle Tone Comments 1+/4 MAD bilateral LE M6 PT-IP Treatment Start: 05/06/25 10:33 Freq: Status: Active Protocol: Document 05/06/25 10:34 NW (Rec: 05/06/25 10:48 NW [id number]) Physical Therapy Treatment Education Education Provided Safety Other Treatments Other Treatment Importance of time out of bed with staff assistance. Performed M7 PT-IP Assessment and Plan Start: 05/06/25 10:33 Freq: Status: Active Protocol: Document 05/06/25 10:34 NW (Rec: 05/06/25 10:48 NW [id number]) PT Summary Assessment and Plan Potential Rehabilitation Fair Potential Status of Condition Evolving at Evaluation Summary Impairments Strength,Balance,Coordination,Sensation,Tone,Cognition, Bed Mobility,Transfers,Gait,Activity Tolerance Progress Towards Progressing Toward Goals Goals Assessment Summary Julio is a 75 yr old male admitted for generalized weakness and debility from baseline. Pt at baseline utilizes a u-step walker and is able to ambulate from apartment to dinning zuniga at [facility] and requires assistance for bathing and dressing at [facility]. Today pt has WFL isolated strength testing, but requires Lisseth for bed mobility, transfers, and short distance gait of 5 ft with FWW. Pt is able to maintain balance with bilateral UE support of FWW, but with fatigue has retropulsion and is modA to lower to bed side chair. Recommending SNF upon discharge as pt is not at baseline and would need to increase assistance at [facility] to return. Goals Bed Mobility Goal Independent Transfer Goal Independent Gait Goal Independent Gait Distance 30 Days to Meet Goals 7 Frequency of Treatment Frequency Of Once a Day Treatment Treatment Plan Physical Therapy Bed Mobility Training,Transfer Training,Gait Training, Treatment Plan Therapeutic Exercise,Balance Retraining,Discharge Planning,Neuromuscular Re-ed,Coordination Retraining Other Progress gait distance Recommendations and Next Treatment Focus Precautions Other Precautions Parkinson's med timing, falls risk Recommendations To Nursing Amount of Assist 1 Person Assist Needed Discharge Recommendations PT Discharge SNF Rehab Recommendations Transportation Needs Wheelchair/Cabulance at Discharge - PT assist 1
[2025-05-06] MEDS: CARBIDOPA-LEVODOPA 25/100 TABLET 1 EACH PO (10:57)
[2025-05-06 11:04] VITALS: BP 167/97; PULSE 79; RESP 20; TEMP 36.2; O2SAT 100
--- NOTE | 2025-05-06 13:33 | DI.CT.S_ITS ---
PROCEDURE: CT ABDOMEN PELVIS W CON INDICATIONS: abdominal pain TECHNIQUE: After the administration of intravenous contrast, axial sections acquired from the lung bases to the pubic symphysis. Coronal and sagittal reformats were performed. For radiation dose reduction, the following was used: automated exposure control, adjustment of mA and/or kV according to patient size. COMPARISON: [facility], CR, XR CHEST 1V, 05/05/2025, 9:41. FINDINGS: Image quality: Diagnostic. Lower Chest: Left lung base pulmonary nodule measuring 0.4 cm, (5/31). Bibasilar atelectasis. No pleural effusion. Left infrahilar calcified node. Tiny hiatal hernia. ABDOMEN: Liver: -Hypodense focus in the left liver. Most likely a small cyst. -Enhancing focus in the left liver, (07/13). Gallbladder: No radiopaque gallstones or wall thickening. Biliary ducts: No biliary dilation. Pancreas: No ductal dilation. No peripancreatic fluid collection. Spleen: Size is within normal limits. Adrenal Glands: No adrenal nodules. Kidneys and Ureters: No hydronephrosis. No solid mass. No complex renal cystic lesion which requires follow up. Stomach and Bowel: Normal colonic caliber, without significant wall thickening. Diverticulosis. Normal appendix. Peritoneum: No abnormal intraperitoneal fluid. No free air. Ventral Wall: No significant ventral hernia. Abdominal Nodes: No retroperitoneal or mesenteric adenopathy by size criteria. Vessels: Aorta and inferior vena cava are normal in size. Portal vein is patent. PELVIS: Pelvic Organs: Prostatomegaly. Bladder: Decompressed with Duran catheter. Bladder wall appears thickened. There is stranding surrounding the urinary bladder. Pelvic Nodes: No enlarged lymph nodes. Miscellaneous: Left and possible right fat containing inguinal hernias. Vasectomy clips. Bones: No aggressive osseous abnormality. IMPRESSION: 1. Bladder is decompressed with Duran catheter. Bladder wall appears thickened with surrounding fat stranding. This could represent cystitis. -Recommend correlation with urinalysis if not yet performed. 2. Small enhancing focus in the left liver. This could represent a perfusion abnormality. Small hemangioma or other neoplasm are also in the differential diagnosis. Low suspicion. -If clinically indicated this could be further evaluated with multiphase liver CT or MRI. 3. Prostatomegaly. No enlarged lymph nodes. Dictated by: Sumanth Gomez M.D. on 05/06/2025 at 15:40 Approved by: Sumanth Gomez M.D. on 05/06/2025 at 15:51
--- NOTE | 2025-05-06 13:34 | DI.MRI.S_ITS ---
PROCEDURE: MR STROKE Pre- and post-contrast brain MRI, non-contrast brain MR angiogram, pre- and postcontrast neck MR angiogram INDICATIONS: parkinsons with neurologic changes TECHNIQUE: Brain: Noncontrast axial T1 spin echo, axial T2 fast spin echo, sagittal and axial FLAIR, coronal T2 fast spin echo, axial gradient echo, axial diffusion and ADC through the brain. After the administration of contrast, axial 3D VIBE of the cranial vasculature and brain. Brain MRA: Non-contrast 3-D time of flight MR angiogram, with multiple ibriulm-lwsrpcdef-bhxcazmvvg (MIP) reformats performed. Neck MRA: Axial and sagittal TruFISP through the neck. Coronal dynamic MR angiogram during administration of contrast in the arterial and venous phases, with 3- dimenstional xitgbul-gresbfokc-abtlzqzycr (MIP) reformats constructed from subtraction images. COMPARISON: [facility], CT, CT HEAD/BRAIN WO CON, 05/05/2025, 9:37. FINDINGS: Image quality: Excellent. BRAIN: CSF spaces: Ventricles are normal in size and shape. Basal cisterns are patent. No extra-axial fluid collections. Brain: No intracranial bleeds or mass effects. Beltran-white matter interface is normal. Diffusion weighted images show no acute infarct. Brainstem appears normal. Normal intravascular flow voids are present. Age-related volume loss and very mild, age-appropriate small-vessel ischemic change. There are 2 focal areas of hemosiderin deposition present, in the left posterior frontal parietal deep white matter as well as in the left anterior frontal periventricular deep white matter. Consider cavernous hemangiomas. No abnormal intracranial enhancement. Skull and face: Calvarial marrow signal is normal. Orbits appear normal. Sinuses: Sinuses and mastoids are clear. BRAIN MR ANGIOGRAM: Anterior circulation: Intracranial internal carotid arteries are normal in size and enhancement. The flow within the paired anterior cerebral arteries is normal and symmetric. The flow within the middle cerebral arteries is normal and symmetric. The anterior communicating artery is seen. No stenoses, occlusions, or aneurysms. Posterior circulation: The visualized portions of the vertebral arteries demonstrate normal caliber, and join to form a normal appearing basilar artery. The flow within the posterior cerebral arteries is normal and symmetric. No stenoses, occlusions, or aneurysms. NECK MR ANGIOGRAM: Carotids: Great vessels demonstrate a conventional anatomy as they arise from the aortic arch. The origins of the common carotid arteries appear patent. The calibers and courses of both common carotid arteries are normal. The bifurcation regions appear normal bilaterally. The internal carotid arteries demonstrate normal course and caliber. Posterior circulation: The origins of the vertebral arteries appear patent. More superior portions of both vertebral arteries demonstrate normal course and caliber, and join to form a normal appearing basilar artery. Miscellaneous: Subclavian arteries appear patent. Pre-contrast images through the neck show no soft tissue abnormalities. IMPRESSION: BRAIN MRI: Normal appearing brain parenchyma for patient age. Very mild small vessel ischemic change. No acute intracranial process. BRAIN MR ANGIOGRAM: Widely patent vessels. NECK MR ANGIOGRAM: Widely patent vessels. Dictated by: Anthony Maloney M.D. on 05/06/2025 at 15:10 Approved by: Anthony Maloney M.D. on 05/06/2025 at 15:16
[2025-05-06 16:00] VITALS: BP 163/94; PULSE 86; RESP 20; TEMP 36.6; O2SAT 100
[2025-05-07] VITALS (9 sets, daily range): BP systolic 92–147; BP diastolic 45–88; PULSE 78–95; RESP 18–21; TEMP 36.1–36.6; O2SAT 95–99
--- NOTE | 2025-05-07 01:15 | PC.NURSE ---
Pt noted with small amount of rectal incontence, diaper changed, cody catheter remain intact, tolerated change well.
[2025-05-07 06:04] LABS: Add Manual Diff / Slide Review NO; Hematocrit 36.9 % (41-53); Hemoglobin 12.9 g/dL (13.5-17.5); Lymphocytes Absolute Auto 1600 /uL (1100-4500); Mean Corpuscular HGB Conc 34.9 % (30-36); Mean Corpuscular Hemoglobin 31.5 PG (26-34); Mean Corpuscular Volume 90.2 fL (80-100); Platelet Count 240 X10^3/uL (150-400)
[2025-05-07] MEDS: CARBIDOPA-LEVODOPA 25/100 TABLET 2 EACH PO ×3 (06:05→20:13)
[2025-05-07] MEDS: ENTACAPONE 200 MG TABLET 400 MG PO ×3 (06:05→20:14)
[2025-05-07] MEDS: CARBIDOPA-LEVODOPA ER 50/200 TABLET 1 EACH PO ×4 (06:05→20:13)
[2025-05-07 06:28] LABS: Blood Urea Nitrogen 13 mg/dL (9-20); Calcium 8.8 mg/dL (8.4-10.2); Carbon Dioxide 21 mmol/L (22-32); Chloride 112 mmol/L (98-107); Estimated Glomerular Filt Rate > 60 mL/min (>60); Glucose 104 mg/dL (70-99); HEMOLYSIS < 15 (0-50); Potassium 4.1 mmol/L (3.4-5.1); Sodium 139 mmol/L (137-145)
--- NOTE | 2025-05-07 08:26 | PM.PN.1 ---
Subjective Subjective Date Patient Seen: 05/07/25 Time Patient Seen: 08:27 Interval history: Patient seen in [facility] for follow-up of weakness, Parkinson's disease, urinary retention. Overall not a lot of change. Complaining of but no pain except in his ankles. Just being weak. No abdominal pain today. No chest pain. No shortness of breath. Has indwelling Duran. Exam Vital Signs (past 8 hours): - 05/07/25 06:00 Temperature 97.6 F Pulse Rate 78 Respiratory Rate 18 Blood Pressure 137/84 Pulse Oximetry 97 Oxygen Delivery Method Room Air Oxygen Flow Rate 0 Narrative Exam Narrative: Alert male slow in response but interactive in no acute distress Lungs are clear. Heart is regular rate and rhythm. Abdomen is soft positive bowel sounds nontender no hepatosplenomegaly no masses extremities with no edema. He has no swelling of his ankles or other changes. Is able to move lower extremities bilaterally although weak 4/5 bilaterally Objective Labs 05/07/25 05:45 05/07/25 05:45 Labs: Laboratory Results - last 24 hr 05/07/25 05:45 WBC 7.0 RBC 4.09 L Hgb 12.9 L Hct 36.9 L MCV 90.2 MCH 31.5 MCHC 34.9 RDW 12.9 Plt Count 240 Neut % (Auto) 67.5 Lymph % (Auto) 22.4 L Mower % (Auto) 7.8 Eos % (Auto) 1.6 L Baso % (Auto) 0.7 Neut # (Auto) 4700 Lymph # (Auto) 1600 Mower # (Auto) 500 Eos # (Auto) 100 Baso # (Auto) 0 Sodium 139 Potassium 4.1 Chloride 112 H Carbon Dioxide 21 L BUN 13 Creatinine 0.79 Estimated GFR > 60 BUN/Creatinine Ratio 16.5 Glucose 104 H Calcium 8.8 PFSH Medical History BPH NOS w ur obs/LUTS Peripheral neuropathy Ventral hernia Orthostatic hypotension Generalized anxiety disorder Depression Parkinsons disease Surgical History Status post repair of ventral hernia Social History household members: spouse Smoking Status: Never smoker alcohol intake: never Assessment & Plan Assessment & Plan narrative: Urinary retention. CT scan showed some bladder wall irritation concern for infection but no other abnormality. Urine from admission showed no abnormality. I do not think it appears to be an infection. Question if this is BPH or related to his deconditioning. Unlikely to be the cause of his weakness but could have been his abdominal pain which he has been having consistently. Apparently in the left lower quadrant. He feels as if they are still a little bit there today but essentially otherwise resolved. No other findings on CT scan. At this point will continue catheter and discuss with urologist. Weakness. Unsure as wire there was an acute change or if there was an acute change or just got to the point where he has been progressively getting worse. It appears as if this probably is related to deconditioning and mild dehydration. That has been resolved at this time. All workup for infection has been negative at this point. Abdominal CT and MRI of head or negative. Does not appear to be stroke or other changes. Suspect worsening of Parkinson's. Apparently there was some questionable change in his medicines which has not been undertaken new. This will need to be considered to be followed up as an outpatient. But no evidence of infection or stroke. Depression/anxiety. Patient is currently on escitalopram and hydroxyzine. BuSpar was held. He seems to be interactive today and doing okay at this point. Wonder how much of this is related to his Parkinson's disease unclear. I do not think it seems to be so bad that it is causing his overall weakness but will see what his usual doctor feels he will be back tomorrow. Parkinson's disease. The patient will continue his usual carbidopa and in cap tone. Continue physical therapy we will see how things go. Hyperglycemia. No known history of diabetes probably not a significant issue we will follow with hemoglobin A1c not available at this time. Leg weakness. No evidence of stroke MRI is negative. Probably related to his Parkinson's disease Abdominal pain. Negative CT. Finding of abnormally liver probably not significant in this 75-year-old with Parkinson's I do not think we have to follow that further. Does have some bladder thickening which will discuss with urologist Cognitive changes. Will need outpatient neuropsych eval MRI MRA were negative. VTE prophylaxis on Lovenox Code status DNR Disposition. PT is feeling as if home maybe a difficult proposition. May need to look at placement. Discussed with social service today. Will see how he does over the next 24-48 hours and whether there is any improvement with physical therapy but suspect will need higher level of care. We will continue to follow. 55 minute spent with the patient nursing social service chart review dictation Time-Based Coding :: [TOTAL MINUTES] spent with patient and on the chart (including review of chart, obtaining history, exam, reviewing outside data, placing orders, documenting exam and treatment plan, and counseling patient) on [DATE].
[2025-05-07] MEDS: ESCITALOPRAM 10 MG TABLET PO ×2 (09:13→20:48)
[2025-05-07] MEDS: FLUDROCORTISONE 0.1 MG TABLET 0.2 MG PO (09:13)
[2025-05-07] MEDS: ENOXAPARIN 40 MG/0.4 ML SYRINGE SUBCUT (09:13)
[2025-05-07] MEDS: TAMSULOSIN 0.4 MG CAPSULE PO ×2 (09:13→20:48)
[2025-05-07] MEDS: MIDODRINE HCL 5 MG TABLET 2.5 MG PO (09:14)
[2025-05-07] MEDS: SODIUM CHLORIDE 0.9% 500 ML 1000 ML IV (10:45)
[2025-05-07] MEDS: CARBIDOPA-LEVODOPA 25/100 TABLET 1 EACH PO (10:59)
--- NOTE | 2025-05-07 11:32 | PT-IP ANOTE ---
Pt on hold this am per nursing, was orthrostatic hypotensive little while ago on BSC. Suggest waiting til this afternoon for PT tx.
--- NOTE | 2025-05-07 12:01 | PM.EVENT ---
Event Note Date Patient Seen: 05/07/25 Time Patient Seen: 10:30 Event Note (Rapid Response, Code, or fall): Code chikis called so I responded to patient's room. Per staff report, he was on the BSC and when they moved him to the chair, he became unresponsive and slumped forward. On my evaluation, patient was initially lethargic with a BP in the low 80s, spontaneous respirations and a regular HR. He was laid back in the recliner and mentation improved. BP quickly improved to 102 systolic and mental status returned to baseline. The patient reports that he was straining to go the bathroom and felt lightheaded. He denied CP, SOB, N/V. Angel lift used to get patient back to bed. His family member reports that he often has episodes of low BP and lightheadedness/presyncope at home due to his PD. DX: vasovagal presyncope - continue to monitor vitals
--- NOTE | 2025-05-07 14:22 | PC.NURSE ---
[id number] pt able to feed himself at breakfast; ate and swallowed very well; pt has no acute pain; denies SOB; pt has had patent SL; family visiting; Pt. OOB with PCT and did have event of low BP after being on BSC to have BM; pt. level of consciousness decreased, MD and staff to bedside for code blue-but pt was not in need of CPR or breathing support; has had spontaneous respirations; did open eyes and was able to speak and say that he was feeling better. Phone call by other staff done and MD squadron worker responded; orders for NS IV bolus initiated by other RN; when BP did not correct after 250 ml order, MD Kern was updated and 250 more for total 500 ml NS bolus completed; pt able to talke well with family; did eat lunch, has taken oral fluids very well. BP has improved, but noted that prior to PT about 1415, BP was lower again, pt feeling ok; PT did in bed routine, no OOB at this time.. MD to round.
--- NOTE | 2025-05-07 14:55 | PT.IPTN ---
Physical Therapy Treatment Note M2 PT-IP Current Condition Start: 05/06/25 10:33 Freq: Status: Active Protocol: Document 05/06/25 10:34 NW (Rec: 05/06/25 10:48 NW [id number]) Physical Therapy Current Condition Current Condition Evaluation Date 05/06/25 Treatment Diagnosis Weakness, Parkinson's Onset Date 05/05/25 M3 PT-IP Subjective Start: 05/06/25 10:33 Freq: Status: Active Protocol: Document 05/07/25 02:15 SAK (Rec: 05/07/25 14:55 SAK [id number]) Subjective Physical Therapy Visit Type Type Treatment Note Visit Start Time 02:15 Visit Stop Time 02:47 Number of GROCERY STORE ASSOCIATE Visits 0 Physical Therapy Visit Comments Patient Comments PT resting in bed after family left, agreeable to PT. (No PT in am due to orthostatic hypotension) Patient Goals To return to prior living arrangement. Therapy Pain Assessment Pain When Pain Assessed At Rest Pain Present Pain Present Denied Pain M4 PT-IP Mobility and Gait Start: 05/06/25 10:33 Freq: Status: Active Protocol: Document 05/07/25 02:15 SAK (Rec: 05/07/25 14:55 SAK [id number]) PT-Bed Mobility Assessment Supine to Sit Supine to Sit Minimal Assistance,Moderate Assistance,Bedrails Scooting Scooting to Edge of Moderate Assistance Bed Scooting Up and Down Maximum Assistance in Bed PT-Transfer Assessment Comments Mobility Comments BP supine at rest 84/52, then 91/55. Bed exercises shree UE's and LE's x 10 min, then BP 116/66. In sitting BP dropped to 77/41 with c/o mild dizziness, assisted back to supine, scooted up in bed with assist of STUDIO OPERATIONS MANAGER. BP returned to 122/66 in supine. Gait Assessment Comments Gait Comments No gait due to orthostatic hypotension, dizziness M5 PT-IP Objective Assessments Start: 05/06/25 10:33 Freq: Status: Active Protocol: Document 05/06/25 10:34 NW (Rec: 05/06/25 10:48 NW [id number]) Orientation Orientation/Cognition Level of Alertness Alert Orientation Name,Month,Place,Situation Safety Awareness Decreased Safety Awareness Comments Takes increased time with responses and becomes emotional with certain questions regarding mobility. Gross Range of Motion Upper Extremity ROM Assessment Within Functional Limits Lower Extremity ROM Assessment Within Functional Limits Strength Upper Extremity Strength Assessment Within Functional Limits Lower Extremity Strength Assessment Within Functional Limits Comments Strength Comments Isolated strength within functional limits. Coordination Assessment Gross Coordination Gross Coordination Impaired Assessment Finger to Nose Test Moderate Impairment Pronation/Supination Moderate Impairment Test Heel on Sotomayor Test Moderate Impairment Sensation Assessment Sensation Gross Sensation Right LE Impaired,Left LE Impaired Light Touch Impaired Sensation [place] Description Comments Sensation Comments Peripheral neuropathy Muscle Tone Muscle Tone WNL No Comments Muscle Tone Comments 1+/4 MAD bilateral LE M6 PT-IP Treatment Start: 05/06/25 10:33 Freq: Status: Active Protocol: Document 05/07/25 02:15 [facility] (Rec: 05/07/25 14:55 [facility] [id number]) Physical Therapy Treatment Exercises Exercises Ankle Pumps,Heel Slides,Supine Hip Abduction,Short Arc Quads,Shoulder Flexion,Elbow Flexion/Extension M7 PT-IP Assessment and Plan Start: 05/06/25 10:33 Freq: Status: Active Protocol: Document 05/07/25 02:15 [facility] (Rec: 05/07/25 14:55 [facility] [id number]) PT Summary Assessment and Plan Summary Impairments Strength,Balance,Coordination,Sensation,Tone,Cognition, Bed Mobility,Transfers,Gait,Activity Tolerance Progress Towards Progressing Toward Goals Goals Assessment Summary PT treatment limited due to low BP. BP supine at rest 84/52, then 91/55. Bed exercises shree UE's and LE's x 10 min, then BP 116/66. Mod assist supine to sit. In sitting BP dropped to 77/41 with c/o mild dizziness, assisted back to supine with mod assist. Pt. scooted up in bed with assist max of 2 PT and STUDIO OPERATIONS MANAGER. BP returned to 122/66 in supine. Treatment Plan Physical Therapy Bed Mobility Training,Transfer Training,Gait Training, Treatment Plan Therapeutic Exercise,Balance Retraining,Discharge Planning,Neuromuscular Re-ed,Coordination Retraining Other Progress functional mobility skills pending BP response Recommendations and ; monitor BP in all positions Next Treatment Focus Precautions Other Precautions Parkinson's med timing, falls risk Recommendations To Nursing Amount of Assist 1 Person Assist Needed Discharge Recommendations PT Discharge SNF Rehab Recommendations Transportation Needs Wheelchair/Cabulance at Discharge
--- NOTE | 2025-05-07 16:34 | CM.DANOTE ---
DCP Assessment note pt is a 75 yo M admitted with urinary retention/weakness from Parkinsons. DRY MOLDER reviewed EMR. pt had a brief code blue called this morning see notes for more. Per chart, pt lives at [facility]. spoke with Noa- pt gets assistance but doesn't use all that he could. at baseline can walk to dining zuniga and back with walker. spouse helps with some ADLs. per PT, rec SNF. DRY MOLDER met with pt, spouse, and other family in room. reviewed DCP options. agreeable to SNF (3rd midnight would mean dc Fri- INS=[facility] Medicare). preference [facility]. if able to mobilize wants to return to [facility] with PT from . Ana KINDLY emailed ref to Pats[facility] at [facility]. acceptance pending. PASRR needed. P: dc to [facility] fri if able to accept. will continue to follow closely for DCP coordination JOE Spangler Discharge Planning/Care Management CM Discharge Assessment Start: 05/05/25 13:18 Freq: Status: Active Protocol: Document 05/07/25 14:37 SL (Rec: 05/07/25 14:39 SL [id number]) Discharge Planning Assessment Assigned Discharge JOE Corona Foam Rubber Mixer Provider [place] Insurance Medicare DPOA/Assigned Tressa Designee Name Contact Information [phone] Advance Directives? No History Provided By Patient Prior Living House Arrangements Household Members spouse Type of Relies on Others transporation used prior to admit Independent with ADL No 's Is patient alert and Yes oriented? Needs Assistance Meal Prep,Home Chores / Shopping With Community Services Physical Therapy used prior to admission: Comment Therapies at [facility] DME Already Rented / FWW / Walker Owned Patient/Family Retirement Facility Preference Discharge Plan Home Transportation facility van Arrangement Referrals Initiated Retirement SNF/HH Preference [facility] Review Status In Process Please Provide Date 05/07/25 Initial DC Assessment Was Performed Next Review Type Continued Stay Review
--- NOTE | 2025-05-07 16:42 | PC.NURSE ---
pt to have Dr. Steen consult for urology; pt will also be maintaining the cody at urology's recommendation for another week. Pt resting well.cody remains patent.
[2025-05-07] MEDS: MIDODRINE HCL 5 MG TABLET PO (17:38)
--- NOTE | 2025-05-07 18:17 | PC.NURSE ---
today pt has had meds for low BP addressed and new orders with MD Dr. Kern placed; this seems to be helping the pt with hypotension when he tries to move bowels while sitting on BSC; BP staying above 100/systolic. will continue to monitor for all needs and changes.
--- NOTE | 2025-05-07 18:32 | PC.NURSE ---
follow this pt for blood pressure changes. Maintain stable Blood PRessure when pt is sitting; Follow results of Midodrine dose increase. Use IV fluids as needed; follow with MD and note urine output.
[2025-05-08] VITALS: BP 149/89; PULSE 78; RESP 18; TEMP 36.4; O2SAT 97
[2025-05-08] MEDS: MIDODRINE HCL 5 MG TABLET PO ×2 (05:27→12:39)
[2025-05-08] MEDS: CARBIDOPA-LEVODOPA ER 50/200 TABLET 1 EACH PO ×4 (05:27→20:06)
[2025-05-08] MEDS: CARBIDOPA-LEVODOPA 25/100 TABLET 2 EACH PO ×3 (05:27→20:05)
[2025-05-08] MEDS: ENTACAPONE 200 MG TABLET 400 MG PO ×3 (05:27→20:06)
[2025-05-08 06:00] VITALS: BP 162/81; PULSE 68; RESP 18; TEMP 36.2; O2SAT 96
[2025-05-08 08:13] VITALS: BP 165/97; PULSE 72; RESP 17; TEMP 36.2; O2SAT 99
[2025-05-08] MEDS: FLUDROCORTISONE 0.1 MG TABLET 0.2 MG PO (08:17)
[2025-05-08] MEDS: TAMSULOSIN 0.4 MG CAPSULE PO ×2 (08:17→20:06)
[2025-05-08] MEDS: ESCITALOPRAM 10 MG TABLET PO ×2 (08:17→20:06)
[2025-05-08] MEDS: ENOXAPARIN 40 MG/0.4 ML SYRINGE SUBCUT (08:18)
--- NOTE | 2025-05-08 09:45 | PT.IPTN ---
Current Diagnoses Parkinson's disease without dyskinesia, without mention of fluctuations (05/07/25) Physical Therapy Treatment Note M2 PT-IP Current Condition Start: 05/06/25 10:33 Freq: Status: Active Protocol: Document 05/06/25 10:34 NW (Rec: 05/06/25 10:48 NW [id number]) Physical Therapy Current Condition Current Condition Evaluation Date 05/06/25 Treatment Diagnosis Weakness, Parkinson's Onset Date 05/05/25 M3 PT-IP Subjective Start: 05/06/25 10:33 Freq: Status: Active Protocol: Document 05/08/25 13:13 NW (Rec: 05/08/25 13:22 NW [id number]) Subjective Physical Therapy Visit Type Type Treatment Note Visit Start Time 09:15 Visit Stop Time 09:45 Notes FLIGHT ENGINEER INSPECTOR present to assist if necessary Number of FORM SETTER STEEL FORMS Visits 0 Physical Therapy Visit Comments Patient Comments Pt wants to get out of bed into chair. No symptoms of dizziness. Patient Goals get stronger M4 PT-IP Mobility and Gait Start: 05/06/25 10:33 Freq: Status: Active Protocol: Document 05/08/25 13:13 NW (Rec: 05/08/25 13:22 NW [id number]) PT-Bed Mobility Assessment Supine to Sit Supine to Sit Moderate Assistance,1 Person Assistance,Head of Bed Elevated,Bedrails Sit to Supine Sit to Supine Moderate Assistance,2 Person Assistance Scooting Scooting to Edge of Maximum Assistance Bed PT-Transfer Assessment Comments Mobility Comments BP supine at 99/59--> 101/68 after bed level exercises --> 116/62 sitting edge of bed --> 5 minutes sitting edge of bed 87/54 with symptoms of claminess/dizziness. Laid back down supine in reverse trendelberg with BP at 126/69 mmHg prior to leaving. RN notified of BP with symptoms of orthostatic hypotension. PT-Balance Assessment Sitting Balance and Reactions Static Sitting Fair Balance Ability Dynamic Sitting Poor Balance Ability M5 PT-IP Objective Assessments Start: 05/06/25 10:33 Freq: Status: Active Protocol: Document 05/06/25 10:34 NW (Rec: 05/06/25 10:48 NW [id number]) Orientation Orientation/Cognition Level of Alertness Alert Orientation Name,Month,Place,Situation Safety Awareness Decreased Safety Awareness Comments Takes increased time with responses and becomes emotional with certain questions regarding mobility. Gross Range of Motion Upper Extremity ROM Assessment Within Functional Limits Lower Extremity ROM Assessment Within Functional Limits Strength Upper Extremity Strength Assessment Within Functional Limits Lower Extremity Strength Assessment Within Functional Limits Comments Strength Comments Isolated strength within functional limits. Coordination Assessment Gross Coordination Gross Coordination Impaired Assessment Finger to Nose Test Moderate Impairment Pronation/Supination Moderate Impairment Test Heel on Sotom[place]or Test Moderate Impairment Sensation Assessment Sensation Gross Sensation Right LE Impaired,Left LE Impaired Light Touch Impaired Sensation [place] Description Comments Sensation Comments Peripheral neuropathy Muscle Tone Muscle Tone WNL No Comments Muscle Tone Comments 1+/4 MAD bilateral LE M6 PT-IP Treatment Start: 05/06/25 10:33 Freq: Status: Active Protocol: Document 05/08/25 13:13 NW (Rec: 05/08/25 13:22 NW [id number]) Physical Therapy Treatment Exercises Exercises Ankle Pumps,Quad Sets,Heel Slides,Supine Hip Abduction Education Education Provided Safety Other Treatments Other Treatment Education on bed level exercises to be performed while Performed waiting to figure out BP control as pt continues to be orthostatic hypotension. M7 PT-IP Assessment and Plan Start: 05/06/25 10:33 Freq: Status: Active Protocol: Document 05/08/25 13:13 NW (Rec: 05/08/25 13:22 NW [id number]) PT Summary Assessment and Plan Potential Rehabilitation Fair Potential Status of Condition Evolving at Evaluation Summary Impairments Strength,Balance,Coordination,Sensation,Tone,Cognition, Bed Mobility,Transfers,Gait,Activity Tolerance Progress Towards Progressing Toward Goals Goals Assessment Summary Pt continues to demonstrate signs and symptoms of orthostatic hypotension after sitting edge of bed for 5 minutes even after performing bed level exercises with slow progression to sit edge of bed. 2 person assist to return pt to reverse trendelenberg with BP of 126/69 mmHg prior to leaving pt with FLIGHT ENGINEER INSPECTOR. RN notified. Continuing to recommend SNF upon discharge. Goals Bed Mobility Goal Independent Transfer Goal Independent Gait Goal Independent Gait Distance 30 Days to Meet Goals 7 Frequency of Treatment Frequency Of Once a Day Treatment Treatment Plan Physical Therapy Bed Mobility Training,Transfer Training,Gait Training, Treatment Plan Therapeutic Exercise,Balance Retraining,Discharge Planning,Neuromuscular Re-ed,Coordination Retraining Other Progress functional mobility skills pending BP response Recommendations and ; monitor BP in all positions Next Treatment Focus Precautions Other Precautions Parkinson's med timing, falls risk Recommendations To Nursing Amount of Assist 1 Person Assist Needed Discharge Recommendations PT Discharge SNF Rehab Recommendations Transportation Needs Wheelchair/Cabulance at Discharge - PT assist 1
[2025-05-08] MEDS: CARBIDOPA-LEVODOPA 25/100 TABLET 1 EACH PO (11:24)
--- NOTE | 2025-05-08 13:33 | CM.DPC ---
CM discussed SNF with patient and his , Tressa, at bedside. SNF preference is [facility]. Patient and Tressa were informed that [facility] will not have any male beds available for the next 4-5 days. Per Tressa, they prefer to return to [facility] with if [facility] continues to be unavailable. Tressa requested [facility] . Tressa will discuss all options with other family before a firm decision is made.
[2025-05-08 14:14] VITALS: BP 125/62; PULSE 84; RESP 16; TEMP 36.4; O2SAT 98
--- NOTE | 2025-05-08 15:37 | PT.IPTN ---
Current Diagnoses Parkinson's disease without dyskinesia, without mention of fluctuations (05/07/25) Physical Therapy Treatment Note M2 PT-IP Current Condition Start: 05/06/25 10:33 Freq: Status: Active Protocol: Document 05/06/25 10:34 NW (Rec: 05/06/25 10:48 NW [id number]) Physical Therapy Current Condition Current Condition Evaluation Date 05/06/25 Treatment Diagnosis Weakness, Parkinson's Onset Date 05/05/25 M3 PT-IP Subjective Start: 05/06/25 10:33 Freq: Status: Active Protocol: Document 05/08/25 15:38 NW (Rec: 05/08/25 15:42 NW [id number]) Subjective Physical Therapy Visit Type Type Treatment Note Visit Start Time 15:00 Visit Stop Time 15:37 Number of TOOLING SPECIALIST Visits 0 Physical Therapy Visit Comments Patient Comments Pt is visiting with family and they would like to try another round of therapy to get out of bed. Patient Goals To get stronger M4 PT-IP Mobility and Gait Start: 05/06/25 10:33 Freq: Status: Active Protocol: Document 05/08/25 15:38 NW (Rec: 05/08/25 15:42 NW [id number]) PT-Bed Mobility Assessment Rolling Type of Rolling Bilateral Level of Assist Moderate Assistance,1 Person Assistance Supine to Sit Supine to Sit Minimal Assistance,1 Person Assistance,Head of Bed Elevated,Bedrails Scooting Scooting to Edge of Minimal Assistance Bed PT-Transfer Assessment Comments Mobility Comments BP supine: 131/84 --> seated edge of bed initially: 133 /85 --> after 4-5 minutes 82/63 with symptoms sitting edge of bed with symptoms --> 128/89 returned to supine . PT-Balance Assessment Sitting Balance and Reactions Static Sitting Fair Balance Ability Dynamic Sitting Poor Balance Ability M5 PT-IP Objective Assessments Start: 05/06/25 10:33 Freq: Status: Active Protocol: Document 05/06/25 10:34 NW (Rec: 05/06/25 10:48 NW [id number]) Orientation Orientation/Cognition Level of Alertness Alert Orientation Name,Month,Place,Situation Safety Awareness Decreased Safety Awareness Comments Takes increased time with responses and becomes emotional with certain questions regarding mobility. Gross Range of Motion Upper Extremity ROM Assessment Within Functional Limits Lower Extremity ROM Assessment Within Functional Limits Strength Upper Extremity Strength Assessment Within Functional Limits Lower Extremity Strength Assessment Within Functional Limits Comments Strength Comments Isolated strength within functional limits. Coordination Assessment Gross Coordination Gross Coordination Impaired Assessment Finger to Nose Test Moderate Impairment Pronation/Supination Moderate Impairment Test Heel on [place] Test Moderate Impairment Sensation Assessment Sensation Gross Sensation Right LE Impaired,Left LE Impaired Light Touch Impaired Sensation [place] Description Comments Sensation Comments Peripheral neuropathy Muscle Tone Muscle Tone WNL No Comments Muscle Tone Comments 1+/4 MAD bilateral LE M6 PT-IP Treatment Start: 05/06/25 10:33 Freq: Status: Active Protocol: Document 05/08/25 15:38 NW (Rec: 05/08/25 15:42 NW [id number]) Physical Therapy Treatment Exercises Exercises Ankle Pumps,Quad Sets,Heel Slides,Supine Hip Abduction Education Education Provided Safety Other Treatments Other Treatment Education on bed level exercises to be performed while Performed waiting to figure out BP control as pt continues to be orthostatic hypotension. M7 PT-IP Assessment and Plan Start: 05/06/25 10:33 Freq: Status: Active Protocol: Document 05/08/25 15:38 NW (Rec: 05/08/25 15:42 NW [id number]) PT Summary Assessment and Plan Potential Rehabilitation Fair Potential Status of Condition Evolving at Evaluation Summary Progress Towards Slow Progress due to Medical Issues Goals Assessment Summary Continues to demonstrate orthostatic hypotension sitting edge of bed > 5 minutes. RN notified and asked for compression garments to assist to allow for progression of mobility. Family in room to witness as they had several questions regarding current mobility thus far. Goals Bed Mobility Goal Independent Transfer Goal Independent Gait Goal Independent Gait Distance 30 Days to Meet Goals 7 Frequency of Treatment Frequency Of Once a Day Treatment Treatment Plan Physical Therapy Bed Mobility Training,Transfer Training,Gait Training, Treatment Plan Therapeutic Exercise,Balance Retraining,Discharge Planning,Neuromuscular Re-ed,Coordination Retraining Other Progress functional mobility skills pending BP response Recommendations and ; monitor BP in all positions Next Treatment Focus Precautions Other Precautions Parkinson's med timing, falls risk, BP medication timing Recommendations To Nursing Amount of Assist 1 Person Assist Needed Discharge Recommendations PT Discharge SNF Rehab Recommendations Transportation Needs Wheelchair/Cabulance at Discharge - PT assist 1
--- NOTE | 2025-05-08 17:58 | PM.PN.1 ---
Subjective Subjective Date Patient Seen: 05/08/25 Time Patient Seen: 09:00 Interval history: CC: weakness Eating a bit better today - only able to work with PT for brief spells - discussed options with Tressa his she is interested in hospice evaluation. Moving towards SNF this discharge but goal is to get back to [facility] Exam Vital Signs (past 8 hours): - 05/08/25 14:14 Temperature 97.5 F L Pulse Rate 84 Respiratory Rate 16 Blood Pressure 125/62 Pulse Oximetry 98 Oxygen Flow Rate 0 Oxygen Delivery Method Room Air Oxygen Flow Rate 0 Narrative Exam Narrative: resting in bed after working with PT Resp Other: clear to auscultation bilaterally, on room air Cardio Other: regular rate, well perfused, s1/s2 GI Other: soft nontender nondistended active subdued bowel sounds Neuro Other: alert awake with evident motor hyperactivity Objective Labs 05/07/25 05:45 05/07/25 05:45 PFSH Medical History BPH NOS w ur obs/LUTS Peripheral neuropathy Ventral hernia Orthostatic hypotension Generalized anxiety disorder Depression Parkinsons disease Surgical History Status post repair of ventral hernia Social History household members: spouse Smoking Status: Never smoker alcohol intake: never Assessment & Plan Assessment & Plan narrative: #Urinary retention CT scan showed some bladder wall irritation concern for infection but no other abnormality. Urine from admission showed no abnormality does not appear to be infection. Question if this is BPH or deconditioning in general. Lower abd pain still resolved today. No other findings on CT scan. At this point will continue catheter and f/up with urology. #Weakness In setting of general decline over last year with deconditioning Negative infection markers, abdominal CT and MRI of head are negative without evidence for stroke or other changes. Parkinson's meds are subject to ongoing changes which may contribute. #Depression/anxiety Continue home escitalopram and hydroxyzine, continue to hold with some prn. Seems not far from baseline. #Parkinson's disease. Continue his usual meds - hard to do much with PT today but he was able to get up. #Hyperglycemia No known history of diabetes probably not a significant issue follow for now. #Leg weakness No evidence of stroke MRI is negative. Probably related to his Parkinson's disease, deconditioning. #Abdominal pain Negative CT resolved symptoms - ate well today. #Cognitive changes Consider outpatient neuropsych eval MRI MRA were negative. VTE prophylaxis on Lovenox Code status DNR MDM: Tressa Disposition. Likely placement/SNF rehab - case management is exploring. Consider hospice. Time-Based Coding :: [TOTAL MINUTES] spent with patient and on the chart (including review of chart, obtaining history, exam, reviewing outside data, placing orders, documenting exam and treatment plan, and counseling patient) on [DATE].
[2025-05-08 19:00] VITALS: BP 147/72; PULSE 89; RESP 16; TEMP 36.5; O2SAT 97
[2025-05-09 04:00] VITALS: BP 131/81; PULSE 93; RESP 19; TEMP 37; O2SAT 93
[2025-05-09] MEDS: CARBIDOPA-LEVODOPA 25/100 TABLET 2 EACH PO ×3 (05:06→20:18)
[2025-05-09] MEDS: MIDODRINE HCL 5 MG TABLET 10 MG PO ×3 (05:06→18:07)
[2025-05-09] MEDS: CARBIDOPA-LEVODOPA ER 50/200 TABLET 1 EACH PO ×4 (05:06→20:18)
[2025-05-09] MEDS: ENTACAPONE 200 MG TABLET 400 MG PO ×3 (05:06→20:18)
[2025-05-09 06:59] LABS: Add Manual Diff / Slide Review NO; Hematocrit 36.4 % (41-53); Hemoglobin 12.8 g/dL (13.5-17.5); Lymphocytes Absolute Auto 800 /uL (1100-4500); Mean Corpuscular HGB Conc 35.2 % (30-36); Mean Corpuscular Hemoglobin 31.5 PG (26-34); Mean Corpuscular Volume 89.4 fL (80-100); Platelet Count 257 X10^3/uL (150-400)
[2025-05-09 07:19] LABS: Alanine Aminotransferase 16 IU/L (<50); Albumin 3.9 g/dL (3.5-5.0); Albumin Globulin Ratio 1.4 (1.0-2.8); Alkaline Phosphatase 43 U/L (38-126); Blood Urea Nitrogen 18 mg/dL (9-20); Calcium 8.9 mg/dL (8.4-10.2); Carbon Dioxide 17 mmol/L (22-32); Chloride 110 mmol/L (98-107); Estimated Glomerular Filt Rate > 60 mL/min (>60); Globulin 2.8 g/dL (1.7-4.1); Glucose 128 mg/dL (70-99); HEMOLYSIS < 15 (0-50); Potassium 3.9 mmol/L (3.4-5.1); Sodium 139 mmol/L (137-145); Total Protein 6.7 g/dL (6.3-8.2)
[2025-05-09 08:31] VITALS: BP 115/67; PULSE 102; RESP 20; TEMP 35.9; O2SAT 96
[2025-05-09] MEDS: TAMSULOSIN 0.4 MG CAPSULE PO ×2 (08:43→20:19)
[2025-05-09] MEDS: ESCITALOPRAM 10 MG TABLET PO ×2 (08:43→20:19)
[2025-05-09] MEDS: FLUDROCORTISONE 0.1 MG TABLET 0.2 MG PO (08:43)
[2025-05-09] MEDS: ENOXAPARIN 40 MG/0.4 ML SYRINGE SUBCUT (08:44)
--- NOTE | 2025-05-09 09:15 | PC.NURSE ---
Assess- Patient is alert and oriented x3, he was just repositioned in bed with pillows. Took all oral medications well with water. He is waiting for his to come in and visit. PT suggest that we might get an order for compression stockings for patient, and that this might help his blood pressure when getting up, but patient is refusing and states that this makes his feet way to hot.
--- NOTE | 2025-05-09 09:22 | PM.PN.IH.1 ---
Subjective Subjective Date Patient Seen: 05/09/25 Time Patient Seen: 09:23 Interval history: Patient seen and evaluated sitting in bed with some mild tremor eating breakfast. Says he is doing well. Still working with PT. Plan for him to be discharged to nursing home facility as opposed to [facility]. He has no complaints or concerns today. Says his will be stopping by sooner than later. Exam Vital Signs (past 8 hours): - 05/09/25 04:00 05/09/25 08:31 05/09/25 09:06 Temperature 98.6 F 96.6 F L Pulse Rate 93 H 102 H Respiratory Rate 19 20 Blood Pressure 131/81 115/67 Pulse Oximetry 93 96 Oxygen Delivery Method Room Air Oxygen Flow Rate 0 0 Oxygen Delivery Method Room Air Oxygen Flow Rate 0 Narrative Exam Narrative: Gen.: Alert good conversation has some tremors. HEENT: Pupils equal round and reactive or mucosa is moist Cardio: Regular rate and rhythm Respiratory: Normal respiratory effort Abdomen: Soft nontender Extremities: Some mild lower extremity edema with tremor Objective Labs 05/09/25 06:45 05/09/25 06:45 Labs: Laboratory Results - last 24 hr 05/09/25 06:45 WBC 8.2 RBC 4.07 L Hgb 12.8 L Hct 36.4 L MCV 89.4 MCH 31.5 MCHC 35.2 RDW 12.8 Plt Count 257 Neut % (Auto) 84.0 H Lymph % (Auto) 9.3 L [place] % (Auto) 5.9 Eos % (Auto) 0.3 L Baso % (Auto) 0.5 Neut # (Auto) 6900 Lymph # (Auto) 800 L [place] # (Auto) 500 Eos # (Auto) 0 Baso # (Auto) 0 Sodium 139 Potassium 3.9 Chloride 110 H Carbon Dioxide 17 L BUN 18 Creatinine 0.85 Estimated GFR > 60 BUN/Creatinine Ratio 21.2 Glucose 128 H Calcium 8.9 Total Bilirubin 1.0 AST 33 ALT 16 Alkaline Phosphatase 43 Total Protein 6.7 Albumin 3.9 Globulin 2.8 Albumin/Globulin Ratio 1.4 [facility] Medical History BPH NOS w ur obs/LUTS Peripheral neuropathy Ventral hernia Orthostatic hypotension Generalized anxiety disorder Depression Parkinsons disease Surgical History Status post repair of ventral hernia Social History household members: spouse Smoking Status: Never smoker alcohol intake: never Assessment & Plan Assessment and plan (1) Parkinsons disease: Qualifiers: Dyskinesia presence: unspecified whether dyskinesia Fluctuating manifestations: with fluctuating manifestations Qualified Code(s): G20.A2 - Parkinson's disease without dyskinesia, with fluctuations Status: Acute (2) Weak: Status: Acute Plan Generalized weakness. Due to deconditioning Parkinson's disease. Workup including CT MRI of head including CT scan of abdomen and pelvis with in normal limits including laboratory testing. Probably due to generalized deconditioning and Parkinson's disease. Urinary retention. Continue with Flomax. Continue with Duran catheter for decompression. Duran anticipated being in for the next 2 weeks and follow up with Urology. Parkinson's disease. Continue with Parkinson's medication and physical therapy. We will need ongoing nursing home facility unsure if on a able to take care of himself at [facility]. Depression and anxiety continue with escitalopram and hydroxyzine. Parkinson's related cognitive changes. Chronic and stable. Orthostatic related hypotension due to Parkinson's disease has medication for fludrocortisone and midodrine. Disposition and plan. Discharge to nursing home facility hopefully a bed available tomorrow Time-Based Coding :: [TOTAL MINUTES] spent with patient and on the chart (including review of chart, obtaining history, exam, reviewing outside data, placing orders, documenting exam and treatment plan, and counseling patient) on [DATE]. PROFEE Graphics Coordinator Document charge(s): Yes Charge Codes Subsequent inpatient/observation care: [id number]
[2025-05-09] MEDS: CARBIDOPA-LEVODOPA 25/100 TABLET 1 EACH PO (11:43)
[2025-05-09 11:48] VITALS: BP 135/72; PULSE 89; RESP 21; TEMP 36.4; O2SAT 95
--- NOTE | 2025-05-09 13:48 | PT.IPTN ---
Current Diagnoses Parkinson's disease without dyskinesia, without mention of fluctuations (05/07/25) Parkinson's disease without dyskinesia, with fluctuations (05/07/25) Weakness (05/07/25) Physical Therapy Treatment Note M2 PT-IP Current Condition Start: 05/06/25 10:33 Freq: Status: Active Protocol: Document 05/06/25 10:34 NW (Rec: 05/06/25 10:48 NW [id number]) Physical Therapy Current Condition Current Condition Evaluation Date 05/06/25 Treatment Diagnosis Weakness, Parkinson's Onset Date 05/05/25 M3 PT-IP Subjective Start: 05/06/25 10:33 Freq: Status: Active Protocol: Document 05/09/25 15:03 NW (Rec: 05/09/25 15:10 NW [id number]) Subjective Physical Therapy Visit Type Type Treatment Note Visit Start Time 13:48 Visit Stop Time 14:30 Number of COMMUNICATION CLERK Visits 0 Physical Therapy Visit Comments Patient Comments Pt is visiting with family and wants to try and sit up. Is open to trying compression garmets once doctors orders come through. Patient Goals Family is working through deciding between rehab or returning to [facility] on hospice. M4 PT-IP Mobility and Gait Start: 05/06/25 10:33 Freq: Status: Active Protocol: Document 05/09/25 15:03 NW (Rec: 05/09/25 15:10 NW [id number]) PT-Bed Mobility Assessment Supine to Sit Supine to Sit Minimal Assistance,1 Person Assistance,Head of Bed Elevated,Bedrails Sit to Supine Sit to Supine Maximum Assistance,1 Person Assistance Scooting Scooting to Edge of Minimal Assistance Bed PT-Transfer Assessment Comments Mobility Comments Supine BP 121/69 --> seated after 3 minutes 89/55 with stable HR--> returned to supine 137/82. Unable to progress to standing or transfer secondary to symptomatic orthostatic hypotension. Continued to bed level exercises. PT-Balance Assessment Sitting Balance and Reactions Static Sitting Good Balance Ability M5 PT-IP Objective Assessments Start: 05/06/25 10:33 Freq: Status: Active Protocol: Document 05/06/25 10:34 NW (Rec: 05/06/25 10:48 NW [id number]) Orientation Orientation/Cognition Level of Alertness Alert Orientation Name,Month,Place,Situation Safety Awareness Decreased Safety Awareness Comments Takes increased time with responses and becomes emotional with certain questions regarding mobility. Gross Range of Motion Upper Extremity ROM Assessment Within Functional Limits Lower Extremity ROM Assessment Within Functional Limits Strength Upper Extremity Strength Assessment Within Functional Limits Lower Extremity Strength Assessment Within Functional Limits Comments Strength Comments Isolated strength within functional limits. Coordination Assessment Gross Coordination Gross Coordination Impaired Assessment Finger to Nose Test Moderate Impairment Pronation/Supination Moderate Impairment Test Heel on [place] Test Moderate Impairment Sensation Assessment Sensation Gross Sensation Right LE Impaired,Left LE Impaired Light Touch Impaired Sensation [place] Description Comments Sensation Comments Peripheral neuropathy Muscle Tone Muscle Tone WNL No Comments Muscle Tone Comments 1+/4 MAD bilateral LE M6 PT-IP Treatment Start: 05/06/25 10:33 Freq: Status: Active Protocol: Document 05/09/25 15:03 NW (Rec: 05/09/25 15:10 NW [id number]) Physical Therapy Treatment Exercises Exercises Ankle Pumps,Heel Slides,Straight Leg Raises,Supine Hip Abduction Education Education Provided Safety Other Treatments Other Treatment bridges 3 x 5 Performed All other exercises performed with PT manual resistance at 3 x 10 reps Benefits of trialing compression stockings to assist with drop in BP. M7 PT-IP Assessment and Plan Start: 05/06/25 10:33 Freq: Status: Active Protocol: Document 05/09/25 15:03 NW (Rec: 05/09/25 15:10 NW [id number]) PT Summary Assessment and Plan Potential Rehabilitation Fair Potential Status of Condition Evolving at Evaluation Summary Impairments Strength,Balance,Coordination,Sensation,Tone,Cognition, Bed Mobility,Transfers,Gait,Activity Tolerance Progress Towards Slow Progress due to Medical Issues Goals Assessment Summary Pt continues to demonstrate s/s of orthostatic hypotension, have spoken with staff mechanical engineer about order for compression garments to assist with progression of mobility. Able to perform bed level exercises with family present in the room. Family states they are deciding between rehab or potentially pursuing hospice and returning to [facility]. Continue to recommend SNF until a decision is made. Goals Bed Mobility Goal Independent Transfer Goal Independent Gait Goal Independent Gait Distance 30 Days to Meet Goals 7 Treatment Plan Physical Therapy Bed Mobility Training,Transfer Training,Gait Training, Treatment Plan Therapeutic Exercise,Balance Retraining,Discharge Planning,Neuromuscular Re-ed,Coordination Retraining Other Progress functional mobility skills pending BP response Recommendations and ; monitor BP in all positions Next Treatment Focus Precautions Other Precautions Parkinson's med timing, falls risk, BP medication timing Recommendations To Nursing Amount of Assist 1 Person Assist Needed Discharge Recommendations PT Discharge SNF Rehab Recommendations Transportation Needs Stretcher/Ambulance at Discharge - PT assist 1
[2025-05-09 14:51] VITALS: BP 138/74; PULSE 85; RESP 18; TEMP 36.6; O2SAT 92
[2025-05-09 19:44] VITALS: BP 155/85; PULSE 89; RESP 18; TEMP 36.3; O2SAT 98
[2025-05-10 02:00] VITALS: BP 148/77; PULSE 98; RESP 18; TEMP 36.6; O2SAT 97
[2025-05-10 05:14] LABS: Add Manual Diff / Slide Review NO; Hematocrit 36.8 % (41-53); Hemoglobin 13.2 g/dL (13.5-17.5); Lymphocytes Absolute Auto 1300 /uL (1100-4500); Mean Corpuscular HGB Conc 35.9 % (30-36); Mean Corpuscular Hemoglobin 32.3 PG (26-34); Mean Corpuscular Volume 89.9 fL (80-100); Platelet Count 227 X10^3/uL (150-400)
[2025-05-10] MEDS: ENTACAPONE 200 MG TABLET 400 MG PO ×3 (05:29→20:45)
[2025-05-10] MEDS: CARBIDOPA-LEVODOPA ER 50/200 TABLET 1 EACH PO ×4 (05:29→20:46)
[2025-05-10] MEDS: CARBIDOPA-LEVODOPA 25/100 TABLET 2 EACH PO ×3 (05:29→20:46)
[2025-05-10 05:42] LABS: Alanine Aminotransferase 8 IU/L (<50); Albumin 3.8 g/dL (3.5-5.0); Albumin Globulin Ratio 1.3 (1.0-2.8); Alkaline Phosphatase 44 U/L (38-126); Blood Urea Nitrogen 20 mg/dL (9-20); Calcium 8.6 mg/dL (8.4-10.2); Carbon Dioxide 21 mmol/L (22-32); Chloride 110 mmol/L (98-107); Estimated Glomerular Filt Rate > 60 mL/min (>60); Globulin 2.9 g/dL (1.7-4.1); Glucose 119 mg/dL (70-99); HEMOLYSIS < 15 (0-50); Potassium 3.8 mmol/L (3.4-5.1); Sodium 140 mmol/L (137-145); Total Protein 6.7 g/dL (6.3-8.2)
[2025-05-10] MEDS: MIDODRINE HCL 5 MG TABLET 10 MG PO ×3 (06:37→18:16)
[2025-05-10] MEDS: TAMSULOSIN 0.4 MG CAPSULE PO ×2 (08:12→20:46)
[2025-05-10] MEDS: ENOXAPARIN 40 MG/0.4 ML SYRINGE SUBCUT (08:12)
[2025-05-10] MEDS: ESCITALOPRAM 10 MG TABLET PO ×2 (08:12→20:46)
[2025-05-10] MEDS: FLUDROCORTISONE 0.1 MG TABLET 0.2 MG PO (08:12)
[2025-05-10] MEDS: CARBIDOPA-LEVODOPA 25/100 TABLET 1 EACH PO (11:12)
[2025-05-10 12:00] VITALS: BP 62/40; PULSE 83; RESP 17; TEMP 36.9; O2SAT 95
--- NOTE | 2025-05-10 12:07 | PM.PN.1 ---
Subjective Subjective Date Patient Seen: 05/10/25 Time Patient Seen: 10:00 Interval history: CC: weakness, urinary retention, hypotension Still quite weak unable to do much more than sit on edge of bed with PT before getting low BP despite increased midodrine dose. Appetite ok. Cody still in place. Exam Vital Signs (past 8 hours): Oxygen Delivery Method Room Air Oxygen Flow Rate 0 Narrative Exam Narrative: sitting up in bed with family at bedside Resp Other: clear to auscultation bilaterally Cardio Other: regular rate s1/s2 minimal pedal edema GI Other: soft nontender active bowel sounds Other: cody in place Neuro Other: alert awake oriented some hyperactivity 2/2 parkinson's meds Objective Labs 05/10/25 04:52 05/10/25 04:52 Labs: Laboratory Results - last 24 hr 05/10/25 04:52 WBC 8.1 RBC 4.10 L Hgb 13.2 L Hct 36.8 L MCV 89.9 MCH 32.3 MCHC 35.9 RDW 12.9 Plt Count 227 Neut % (Auto) 75.5 H Lymph % (Auto) 15.4 L [place] % (Auto) 7.3 Eos % (Auto) 1.5 L Baso % (Auto) 0.3 Neut # (Auto) 6100 Lymph # (Auto) 1300 [place] # (Auto) 600 Eos # (Auto) 100 Baso # (Auto) 0 Sodium 140 Potassium 3.8 Chloride 110 H Carbon Dioxide 21 L BUN 20 Creatinine 0.71 Estimated GFR > 60 BUN/Creatinine Ratio 28.2 H Glucose 119 H Calcium 8.6 Total Bilirubin 0.7 AST 31 ALT 8 Alkaline Phosphatase 44 Total Protein 6.7 Albumin 3.8 Globulin 2.9 Albumin/Globulin Ratio 1.3 [facility] Medical History BPH NOS w ur obs/LUTS Peripheral neuropathy Ventral hernia Orthostatic hypotension Generalized anxiety disorder Depression Parkinsons disease Surgical History Status post repair of ventral hernia Social History household members: spouse Smoking Status: Never smoker alcohol intake: never Assessment & Plan Assessment & Plan narrative: #Generalized weakness since viral cough several weeks ago In setting of deconditioning and Parkinson's disease. Workup including CT MRI of head including CT scan of abdomen and pelvis within normal limits including laboratory testing. Without obvious actionable etiology planning conitnued supportive care. Family is interested in exploring hospice which I agree with he is good candidate, will submit referral. #Urinary retention Continue with Flomax. New placement on admission of Cody catheter for retention/decompression. Unable to get outpt f/up with urology - will trial d/c cody today prior to leaving tomorrow maybe. If he retains will replace cody. #Parkinson's disease Continue with Parkinson's medication and physical therapy. #Depression and anxiety Continue with escitalopram and hydroxyzine. #Parkinson's related cognitive changes Chronic and stable. #Orthostatic related hypotension due to Parkinson's disease Taking fludrocortisone and midodrine. Midodrine increased to 10 tid without much help - still easily gets low BP on arising - acute fall risk - goal is to work on transferring - contiue to work with PT. Dispo: Discharge to long term facility hopefully a bed available tomorrow MDM: Diet: heart healthy Time-Based Coding :: [TOTAL MINUTES] spent with patient and on the chart (including review of chart, obtaining history, exam, reviewing outside data, placing orders, documenting exam and treatment plan, and counseling patient) on [DATE].
--- NOTE | 2025-05-10 13:10 | PT.IPTN ---
Current Diagnoses Parkinson's disease without dyskinesia, without mention of fluctuations (05/07/25) Parkinson's disease without dyskinesia, with fluctuations (05/07/25) Weakness (05/07/25) Physical Therapy Treatment Note M2 PT-IP Current Condition Start: 05/06/25 10:33 Freq: Status: Active Protocol: Document 05/06/25 10:34 NW (Rec: 05/06/25 10:48 NW [id number]) Physical Therapy Current Condition Current Condition Evaluation Date 05/06/25 Treatment Diagnosis Weakness, Parkinson's Onset Date 05/05/25 M3 PT-IP Subjective Start: 05/06/25 10:33 Freq: Status: Active Protocol: Document 05/10/25 12:40 AB (Rec: 05/10/25 12:55 AB [id number]) Subjective Physical Therapy Visit Type Type Treatment Note Visit Start Time 12:00 Visit Stop Time 12:31 Number of IMMIGRATION ATTORNEY Visits 1 Physical Therapy Visit Comments Patient Comments Family present. Patient agreeable to participate in therapy. Family questioning if patient will stand up, get to a chair. Therapy Pain Assessment Pain When Pain Assessed At Rest Pain Present Pain Present Denied Pain M4 PT-IP Mobility and Gait Start: 05/06/25 10:33 Freq: Status: Active Protocol: Document 05/10/25 12:40 AB (Rec: 05/10/25 12:55 AB [id number]) PT-Bed Mobility Assessment Rolling Type of Rolling Roll to Right Level of Assist Moderate Assistance,1 Person Assistance Supine to Sit Supine to Sit Maximum Assistance,1 Person Assistance Sit to Supine Sit to Supine Maximum Assistance,2 Person Assistance Scooting Scooting to Edge of Minimal Assistance Bed Scooting Up and Down Maximum Assistance in Bed PT-Transfer Assessment Comments Mobility Comments Supine BP L UE 149/74 supine, 89/69 post supine to sit, ~4 min into sitting BP 83/54, sidelying 88/48. Patient initially min assist seated then to CGA to very close supervision seated, able to perform LAQ with close supervision ( feet resting on therapist and son in laws feet) In seated position ~7 min. PT-Balance Assessment Sitting Balance and Reactions Static Sitting Fair Balance Ability Dynamic Sitting Poor Balance Ability M5 PT-IP Objective Assessments Start: 05/06/25 10:33 Freq: Status: Active Protocol: Document 05/06/25 10:34 NW (Rec: 05/06/25 10:48 NW [id number]) Orientation Orientation/Cognition Level of Alertness Alert Orientation Name,Month,Place,Situation Safety Awareness Decreased Safety Awareness Comments Takes increased time with responses and becomes emotional with certain questions regarding mobility. Gross Range of Motion Upper Extremity ROM Assessment Within Functional Limits Lower Extremity ROM Assessment Within Functional Limits Strength Upper Extremity Strength Assessment Within Functional Limits Lower Extremity Strength Assessment Within Functional Limits Comments Strength Comments Isolated strength within functional limits. Coordination Assessment Gross Coordination Gross Coordination Impaired Assessment Finger to Nose Test Moderate Impairment Pronation/Supination Moderate Impairment Test Heel on [place] Test Moderate Impairment Sensation Assessment Sensation Gross Sensation Right LE Impaired,Left LE Impaired Light Touch Impaired Sensation [place] Description Comments Sensation Comments Peripheral neuropathy Muscle Tone Muscle Tone WNL No Comments Muscle Tone Comments 1+/4 MAD bilateral LE M6 PT-IP Treatment Start: 05/06/25 10:33 Freq: Status: Active Protocol: Document 05/10/25 12:40 AB (Rec: 05/10/25 12:55 AB [id number]) Physical Therapy Treatment Exercises Exercises Seated Knee Flexion/Extension Knee ROM Measurement bridge X 1 pt ed importance of this ex for sit to stand Other Treatments Other Treatment Verbal review of supine hip abd for moving legs off bed Performed , and SLR for quad strength for standing. M7 PT-IP Assessment and Plan Start: 05/06/25 10:33 Freq: Status: Active Protocol: Document 05/10/25 12:40 AB (Rec: 05/10/25 12:55 AB [id number]) PT Summary Assessment and Plan Potential Rehabilitation Fair Potential Status of Condition Evolving at Evaluation Summary Impairments Strength,Balance,Coordination,Sensation,Tone,Cognition, Bed Mobility,Transfers,Gait,Activity Tolerance Progress Towards Slow Progress due to Medical Issues Goals Assessment Summary Pt continues to demonstrate s/s of orthostatic hypotension. Patient left in bed call light in reach, family present. Family requesting patient stand up this session, but due to low BP, increased effort for seated positioning and bed mobility, standing not attempted this session. Nursing made aware BP low in seated position, making patient not a good candidate for sonia to chair at this time. Second person will likely be required when BP and symptoms allow. Check BP all positions next session. Goals Bed Mobility Goal Independent Transfer Goal Independent Gait Goal Independent Gait Distance 30 Days to Meet Goals 7 Treatment Plan Physical Therapy Bed Mobility Training,Transfer Training,Gait Training, Treatment Plan Therapeutic Exercise,Balance Retraining,Discharge Planning,Neuromuscular Re-ed,Coordination Retraining Other Progress functional mobility skills pending BP response Recommendations and ; monitor BP in all positions Next Treatment Focus Precautions Other Precautions Parkinson's med timing, falls risk, BP medication timing Recommendations To Nursing Amount of Assist PT/OT Assist Only Needed Discharge Recommendations PT Discharge SNF Rehab Recommendations Transportation Needs Stretcher/Ambulance at Discharge - PT assist 1 to 2
[2025-05-10 14:35] VITALS: BP 133/72
--- NOTE | 2025-05-10 15:32 | PC.NURSE ---
Tristian BHANDARI order from Dr. Gutiérrez to remove pt's cody catheter for voiding trial. Pt initially told that cody would be staying in for a couple of weeks until appointment with Dr. Ji. [employer] called urology clinic this morning and got the pt an appointment for 07/29/24. RN clarified with Dr. Gutiérrez that he wants the cody removed today, and he said yes. Cody removed at 1530. RN educated pt and on how to use the urinal, and advised pt to call for staff assistance with his first use. Also educated pt on time frame for voiding after a cody catheter is taken out.
[2025-05-10 18:00] VITALS: BP 117/70; PULSE 82; RESP 16; TEMP 36.6; O2SAT 98
[2025-05-10 20:00] VITALS: BP 114/54; PULSE 91; RESP 22; TEMP 36.4; O2SAT 99
[2025-05-11 04:00] VITALS: BP 134/74; PULSE 65; RESP 19; TEMP 36.1; O2SAT 96
[2025-05-11] MEDS: MIDODRINE HCL 5 MG TABLET 10 MG PO (04:55)
[2025-05-11] MEDS: CARBIDOPA-LEVODOPA ER 50/200 TABLET 1 EACH PO ×2 (04:55→11:25)
[2025-05-11] MEDS: CARBIDOPA-LEVODOPA 25/100 TABLET 2 EACH PO (04:55)
[2025-05-11] MEDS: ENTACAPONE 200 MG TABLET 400 MG PO ×2 (04:55→11:25)
[2025-05-11 05:06] LABS: Add Manual Diff / Slide Review NO; Hematocrit 36.3 % (41-53); Hemoglobin 12.8 g/dL (13.5-17.5); Lymphocytes Absolute Auto 1500 /uL (1100-4500); Mean Corpuscular HGB Conc 35.2 % (30-36); Mean Corpuscular Hemoglobin 31.8 PG (26-34); Mean Corpuscular Volume 90.4 fL (80-100); Platelet Count 242 X10^3/uL (150-400)
[2025-05-11 05:32] LABS: Alanine Aminotransferase 7 IU/L (<50); Albumin 3.7 g/dL (3.5-5.0); Albumin Globulin Ratio 1.3 (1.0-2.8); Alkaline Phosphatase 41 U/L (38-126); Blood Urea Nitrogen 21 mg/dL (9-20); Calcium 8.6 mg/dL (8.4-10.2); Carbon Dioxide 22 mmol/L (22-32); Chloride 111 mmol/L (98-107); Estimated Glomerular Filt Rate > 60 mL/min (>60); Globulin 2.8 g/dL (1.7-4.1); Glucose 118 mg/dL (70-99); HEMOLYSIS < 15 (0-50); Potassium 3.8 mmol/L (3.4-5.1); Sodium 139 mmol/L (137-145); Total Protein 6.5 g/dL (6.3-8.2)
[2025-05-11 08:00] VITALS: BP 122/71; PULSE 71; RESP 19; TEMP 36.9; O2SAT 95
--- NOTE | 2025-05-11 08:31 | PM.DS.IH.1 ---
History of Present Illness History of Present Illness Chief complaint: weakness Discharge Providers Provider Date of admission: 05/07/25 12:23 Discharge Date: 05/11/25 Primary care physician: Branden Link MD Consults: 05/05/25 14:25 Consult to Discharge Planning Routine Comment: Consult to Physical Therapy Evaluate & Treat Comment: Weakness Physician Instructions: Evaluate and Treat 05/07/25 16:29 Consult to Urology Routine Comment: Consulting Provider: [facility] Reason for consultation: urinary retention and maintaining cody for another week. 05/10/25 12:06 Consult to Hospice Referral Routine Comment: Discharge provider: Cornell Morgan MD Summary Hospital Course Discharge Diagnosis: Parkinson's disease and Parkinson's weakness. Urinary retention acute Depression and anxiety Parkinson's related cognitive decline Orthostatic hypotension Hospital Course: Parkinson's disease causing Generalized weakness since viral cough several weeks ago In setting of deconditioning and Parkinson's disease. Workup including CT MRI of head including CT scan of abdomen and pelvis within normal limits including laboratory testing. Without obvious actionable etiology planning conitnued supportive care. Family is interested in exploring hospice which I agree with he is good candidate, will submit referral. #Urinary retention Continue with Flomax. New placement on admission of Cody catheter for retention/decompression. Unable to get outpt f/up with urology outpatient. Continue with Flomax. Will need to be on Flomax for 10-12 days follow up with outpatient for voiding trial. #Parkinson's disease Continue with Parkinson's medication and physical therapy. #Depression and anxiety Continue with escitalopram and hydroxyzine. #Parkinson's related cognitive changes Chronic and stable. #Orthostatic related hypotension due to Parkinson's disease Taking fludrocortisone and midodrine. Midodrine increased to 10 tid without much help - still easily gets low BP on arising - acute fall risk - goal is to work on transferring - contiue to work with PT. Exam Vital Signs (past 8 hours): - 05/11/25 04:00 Temperature 96.9 F L Pulse Rate 65 Respiratory Rate 19 Blood Pressure 134/74 Pulse Oximetry 96 Oxygen Flow Rate 0 Oxygen Delivery Method Room Air Oxygen Flow Rate 0 Objective Labs 05/11/25 04:15 05/11/25 04:15 Labs: Laboratory Results - last 24 hr 05/11/25 04:15 WBC 5.7 RBC 4.01 L Hgb 12.8 L Hct 36.3 L MCV 90.4 MCH 31.8 MCHC 35.2 RDW 12.7 Plt Count 242 Neut % (Auto) 59.8 Lymph % (Auto) 26.7 [place] % (Auto) 10.1 Eos % (Auto) 2.6 Baso % (Auto) 0.8 Neut # (Auto) 3400 Lymph # (Auto) 1500 [place] # (Auto) 600 Eos # (Auto) 200 Baso # (Auto) 0 Sodium 139 Potassium 3.8 Chloride 111 H Carbon Dioxide 22 BUN 21 H Creatinine 0.71 Estimated GFR > 60 BUN/Creatinine Ratio 29.6 H Glucose 118 H Calcium 8.6 Total Bilirubin 0.7 AST 29 ALT 7 Alkaline Phosphatase 41 Total Protein 6.5 Albumin 3.7 Globulin 2.8 Albumin/Globulin Ratio 1.3 [facility] Medical History BPH NOS w ur obs/LUTS Peripheral neuropathy Ventral hernia Orthostatic hypotension Generalized anxiety disorder Depression Parkinsons disease Surgical History Status post repair of ventral hernia Social History household members: spouse Smoking Status: Never smoker alcohol intake: never Discharge Plan Discharge Plan Patient Disposition: SNF Transfer to: [facility] Discharge orders & Medications Prescriptions: Continued fluconazole 150 mg tablet 150 mg PO Q3D Qty: 2 0RF Rx Instructions: Take 1 tab by mouth orally every 72 hours x2 doses Magic Mouthwash See Rx Instructions .ROUTE .COMPLEX Qty: 180 0RF Rx Instructions: swish and swallow 4x/day nothing to eat or drink 30 mins afterwards; 5mL swish and swallow four times walker, nothing to eat or drink 30 minutes after diphenhydramine, generic Maalox, 2% viscous lidocaine, Nystatin 1:1:1:1 carbidopa-levodopa 50-200 mg tablet extended release 1 tab PO 4XD Patient Comments: 0500, 1100, 1500, 2000 entacapone 200 mg tablet 400 mg PO TID Patient Comments: 0500, 1100, 2000 carbidopa-levodopa 25-100 mg tablet 2 tab PO QID Patient Comments: 0500, 1100 1 tab, 1500, 1800 escitalopram oxalate 10 mg tablet 10 mg PO BID Patient Comments: 07, 1900 hydroxyzine HCl 25 mg tablet 25 mg PO PRN buspirone 15 mg tablet 15 mg PO BID fludrocortisone 0.1 mg tablet 0.2 mg PO QAM Patient Comments: 744 midodrine 2.5 mg tablet 2.5 mg PO DAILY Patient Comments: 0800 Follow up/Referrals: Branden Link MD [Primary Care Provider, Family Practice] Visit Report/Discharge Packet Stand Alone Forms: [employer], Patient Portal/API, Stroke Signs & Symptoms, Influenza Vaccine Info, Notice of Privacy Practices, Inpatient vs Outpatient, Pneumococcal Vaccine Info, Pt. Rights & Responsibilities Discharge Data Primary Care Provider: Branden Link PROFEE Charge Codes Discharge inpatient/observation: 15118
--- NOTE | 2025-05-11 09:12 | CM.DPC ---
[facility] HAS OPEN MALE BED. PATIENT AND FAMILY HAVE BEEN UPDATED. PATIENT'S AND DRT, JOSE ANGEL, ARE AGREEABLE TO ems TRANSPORT. [facility] TRANSPORTING AT 1130. KARLA DUVALL AND ESTELITA SCALES UPDATED.
[2025-05-11] MEDS: TAMSULOSIN 0.4 MG CAPSULE PO (09:16)
[2025-05-11] MEDS: ESCITALOPRAM 10 MG TABLET PO (09:16)
[2025-05-11] MEDS: ENOXAPARIN 40 MG/0.4 ML SYRINGE SUBCUT (09:16)
[2025-05-11] MEDS: FLUDROCORTISONE 0.1 MG TABLET 0.2 MG PO (09:17)
[2025-05-11] MEDS: CARBIDOPA-LEVODOPA 25/100 TABLET 1 EACH PO (11:24)
--- NOTE | 2025-05-11 12:25 | PC.NURSE ---
Pt discharged to [facility] at 1205, escorted off floor on stretcher accompanied by transport staff. IV removed, discharge teaching included in packet for facility. Report call to [place] ([phone]) at 1214. Belongings left the floor with family.
== END 2025-05-11 12:27 | DRG 57 ==
LOC: ED 09:42 → AC 12:42
PROVIDERS: Family Medicine; Admitting Provider Internal Medicine; Emergency Provider Family Medicine; Family Provider Family Medicine; PCP Family Medicine; Referring Provider Family Medicine; Visit Provider Family Medicine
DX: G20.A2 Parkinson's disease without dyskinesia, with fluctuations (principal); E86.0 Dehydration; R53.1 Weakness; N40.1 Benign prostatic hyperplasia with lower urinary tract symptoms; R33.8 Other retention of urine; F32.A Depression, unspecified; F41.9 Anxiety disorder, unspecified; R73.9 Hyperglycemia, unspecified; R10.31 Right lower quadrant pain; R93.2 Abnormal findings on diagnostic imaging of liver and biliary tract; I95.1 Orthostatic hypotension; Z66 Do not resuscitate
CPT/HCPCS: 36415; 70450; 70544; 70549; 70553; 71045; 74018; 74177; 80048; 80053; 81001; 83036; 83605; 83690; 83735; 83880; 84484; 85025; 87040; 87633; 96360; 96361; 97110; 97161; 97530; 99284; G0378; A9270; A9579; J1650; J7030; J7040; J7120; Q9967